=== PATIENT | male | born 1980 | race Caucasian/White ===

== ENCOUNTER 2017-12-28 21:55 | Inpatient (IN) ==
[2017-12-28] MEDS ORDERED: Diphtheria/Tetanus/Pertussis Vaccine Inj 0.5 ML Syringe IM ONE (21:59)
[2017-12-28] MEDS ORDERED: fentaNYL Citrate Inj 100 MCG/2 ML Ampul ONE ×2 (22:07→22:52)
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
[2017-12-28 22:24] LABS: Baso # (Auto) 0.1 th/mm3 (0.0-0.2); Baso % (Auto) 0.4 % (0.0-2.0); Eos # (Auto) 0.3 th/mm3 (0.0-0.4); Eos % (Auto) 1.3 % (0.0-4.0); Hematocrit 50.5 % (39.0-51.0); Hemoglobin 16.8 gm/dL (13.0-17.0); Lymph # (Auto) 2.8 th/mm3 (1.0-4.8); Lymph % (Auto) 14.4 % (9.0-44.0); Mean Corpuscular HGB Conc 33.2 % (32.0-36.0); Mean Corpuscular Hemoglobin 30.7 pg (27.0-34.0); Mean Corpuscular Volume 92.5 fL (80.0-100.0); Mean Platelet Volume 8.7 fL (7.0-11.0); Mono % (Auto) 4.8 % (0.0-8.0); Neut # (Auto) 15.6 th/mm3 (1.8-7.7); Neut % (Auto) 79.1 % (16.0-70.0); Platelet Count 276 th/mm3 (150-450); Red Blood Count 5.46 mil/mm3 (4.50-5.90); Red Cell Distribution Width 13.3 % (11.6-17.2); White Blood Count 19.8 th/mm3 (4.0-11.0)
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
[2017-12-28] MEDS ORDERED: Labetalol HCl Inj 100 MG/20 ML Vial ONE (22:34)
[2017-12-28 22:36] LABS: Activated Partial Thrombo Time 23.6 sec (24.3-30.1); INR 1.2 Ratio; Prothrombin Time 11.8 sec (9.8-11.6)
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
[2017-12-28 22:42] LABS: Anion Gap 5 meq/L (5-15); Blood Urea Nitrogen 15 mg/dL (7-18); Carbon Dioxide 30.3 meq/L (21.0-32.0); Chloride 105 meq/L (98-107); Glomerular Filtration Rate 44 mL/min (>89); Glucose,Random 110 mg/dL (74-106); Sodium 140 meq/L (136-145)
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
[2017-12-28 22:51] LABS: Potassium 5.5 meq/L (3.5-5.1)
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
[2017-12-28] MEDS ORDERED: Succinylcholine Inj 200 MG/10 ML Vial ONE ×3 (23:04→23:52)
[2017-12-28] MEDS ORDERED: Etomidate Inj 20 MG/10 ML Ampul IV.PUSH ONE (23:04)
[2017-12-28] MEDS ORDERED: ceFAZolin 2 GM Premix Inj 2 GM/50 ML PIGGYBACK IV.SIG ONE (23:53)
[2017-12-29] MEDS ORDERED: Succinylcholine Inj 200 MG/10 ML Vial ONE (00:31)
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
--- NOTE | 2017-12-29 01:26 | P.RAD ---
Post Procedure Progress Note - Procedure Information Procedure Date: 12/29/17 Supervising Radiologist: Max Davies MD Assisting Physician: Noman Joseph Estimated blood loss (mL): 10 Anesthesia: General - Plan of Activity Patient to Unit: Critical Care Patient Condition: Fair See PACS Report for procedural detail/treatment.
[2017-12-29] MEDS ORDERED: Naloxone Inj 0.4 MG/ML Vial IV.PUSH PRN (02:08)
[2017-12-29] MEDS ORDERED: Bisacodyl 10 MG Supp RECTAL PRN (02:08)
[2017-12-29] MEDS ORDERED: Post-op Orders (for Pharmacy) OTHER ONE (02:08)
[2017-12-29] MEDS ORDERED: Propofol 1000 mg/100 ml Inj 1,000 MG/100 ML BOTTLE IV.CONT PRN ×2 (02:10→02:30)
[2017-12-29] MEDS ORDERED: fentaNYL 10 mcg/mL Premix Drip 2,500 MCG/250 ML BAG IV.SIG PRN (02:11)
[2017-12-29] MEDS: Sod Chloride 0.9% Inj 1,000 ML IV.CONT SCH ×2 (02:15→14:00)
[2017-12-29 02:28] LABS: ABG Base Excess 2.2 mmol/L (-2-2); ABG PCO2 39 mmHg (38-42); ABG PO2 76 mmHg (61-120)
[2017-12-29] MEDS: fentaNYL 10 mcg/mL Premix Drip 2,500 MCG/250 ML BAG IV.SIG PRN ×2 (02:40→16:41)
[2017-12-29 03:45] LABS: Amphetamine Screen,Urine Neg (Neg); Barbiturate Screen,Urine Neg (Neg); Cannabinoid Screen,Urine Neg (Neg); Cocaine Screen,Urine Neg (Neg); Opiate Screen,Urine Neg (Neg)
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
[2017-12-29] MEDS: Propofol 1000 mg/100 ml Inj 1,000 MG/100 ML BOTTLE ONE ×2 (04:00→09:59)
[2017-12-29] MEDS: Propofol 1000 mg/100 ml Inj 1,000 MG/100 ML BOTTLE IV.CONT PRN ×3 (04:00→10:19)
[2017-12-29] MEDS: Metoprolol Inj 5 MG/5 ML Vial IV.PUSH SCH ×2 (04:52→09:59)
[2017-12-29] MEDS: ceFAZolin Inj 1,000 MG in Sodium Chlor 0.9% Inj 100 ML IV.SIG SCH ×2 (05:44→10:18)
[2017-12-29 08:55] LABS: Hematocrit 36.6 % (39.0-51.0); Hemoglobin 12.4 gm/dL (13.0-17.0); Lymph # (Auto) 0.5 th/mm3 (1.0-4.8); Lymph % (Auto) 3.7 % (9.0-44.0); Mean Corpuscular HGB Conc 33.9 % (32.0-36.0); Mean Corpuscular Hemoglobin 31.3 pg (27.0-34.0); Mean Corpuscular Volume 92.3 fL (80.0-100.0); Mean Platelet Volume 7.8 fL (7.0-11.0); Mono # (Auto) 1.1 th/mm3 (0.0-0.9); Mono % (Auto) 7.5 % (0.0-8.0); Neut # (Auto) 12.5 th/mm3 (1.8-7.7); Neut % (Auto) 88.8 % (16.0-70.0); Platelet Count 150 th/mm3 (150-450); Red Blood Count 3.97 mil/mm3 (4.50-5.90); Red Cell Distribution Width 12.9 % (11.6-17.2); White Blood Count 14.1 th/mm3 (4.0-11.0)
[2017-12-29 09:16] LABS: Alanine Aminotransferase 225 U/L (12-78); Anion Gap 9 meq/L (5-15); Aspartate Aminotransferase 237 U/L (15-37); Blood Urea Nitrogen 15 mg/dL (7-18); Calcium 8.3 mg/dL (8.5-10.1); Carbon Dioxide 24.7 meq/L (21.0-32.0); Chloride 109 meq/L (98-107); Glomerular Filtration Rate 56 mL/min (>89); Glucose,Random 127 mg/dL (74-106); Potassium 3.8 meq/L (3.5-5.1); Sodium 143 meq/L (136-145)
[2017-12-29 09:23] LABS: Alkaline Phosphatase 39 U/L (45-117); Total Protein 5.9 g/dL (6.4-8.2)
[2017-12-29] MEDS ORDERED: Sod Chloride 0.9% Inj 1,000 ML IV.SIG ONE ×2 (10:00→14:52)
[2017-12-29] MEDS ORDERED: Albumin Human 5% Inj 500 ML IV.SIG ONE (10:00)
[2017-12-29] MEDS: Famotidine PF Inj 20 MG/2 ML Vial IV.PUSH SCH (10:16)
[2017-12-29] MEDS: Senna/Docusate Sodium 8.6/50 MG Tablet PO SCH (10:16)
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
[2017-12-29] MEDS ORDERED: Phenylephrine/NS 1000 MCG/10ML Syringe IV.PUSH ONE ×2 (12:00→14:52)
[2017-12-29] MEDS ORDERED: Metoprolol Inj 5 MG/5 ML Vial IV.PUSH ONE (12:00)
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
[2017-12-29] MEDS ORDERED: Lidocaine 1% Inj 50 ML Vial ONE (12:39)
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
[2017-12-29] MEDS ORDERED: Piperacil/Tazo 4.5 GM Premix 4.5 GM/100 ML BAG IV.SIG ONE (13:45)
[2017-12-29] MEDS: Oral Hygiene Kit OROPHARYNG SCH ×2 (14:00→17:48)
[2017-12-29 14:07] LABS: ABG PCO2 42 mmHg (38-42); ABG PO2 147 mmHG (61-120)
[2017-12-29 14:14] LABS: Hematocrit 27.4 % (39.0-51.0); Hemoglobin 9.6 gm/dL (13.0-17.0); Mean Corpuscular HGB Conc 35.1 % (32.0-36.0); Mean Corpuscular Hemoglobin 31.9 pg (27.0-34.0); Mean Corpuscular Volume 90.8 fL (80.0-100.0); Mean Platelet Volume 7.8 fL (7.0-11.0); Platelet Count 118 th/mm3 (150-450); Red Blood Count 3.02 mil/mm3 (4.50-5.90); Red Cell Distribution Width 13.3 % (11.6-17.2); White Blood Count 13.1 th/mm3 (4.0-11.0)
[2017-12-29 14:26] LABS: Activated Partial Thrombo Time 35.7 sec (24.3-30.1); INR 1.3 Ratio; Prothrombin Time 13.4 sec (9.8-11.6)
[2017-12-29 14:37] LABS: Calcium 7.4 mg/dL (8.5-10.1); Carbon Dioxide 25.4 meq/L (21.0-32.0)
[2017-12-29 14:53] LABS: Total Protein 5.1 g/dL (6.4-8.2)
[2017-12-29 15:20] LABS: Potassium 3.8 meq/L (3.5-5.1)
[2017-12-29] MEDS ORDERED: Potassium Chlor 20 mEq Premix 20 MEQ/100 ML PIGGYBACK IV.SIG PRN ×2 (15:29)
[2017-12-29] MEDS ORDERED: Magnesium Oxide 400 MG Tablet PO PRN (15:29)
[2017-12-29] MEDS ORDERED: Potassium Phosphate 500 MG Soluble Tablet PO PRN ×2 (15:29)
[2017-12-29] MEDS ORDERED: Sodium Phosphate Inj 30 MMOL in Sodium Chlor 0.9% Inj 250 ML IV.SIG PRN (15:29)
[2017-12-29] MEDS ORDERED: Magnesium Sulfate Inj 2 GM in Sodium Chlor 0.9% Inj 96 ML IV.SIG PRN (15:29)
[2017-12-29] MEDS ORDERED: Potassium Phosphate Inj 30 MMOL in Sodium Chlor 0.9% Inj 250 ML IV.SIG PRN (15:29)
[2017-12-29] MEDS ORDERED: Magnesium Sulfate Inj 4 GM in Sodium Chlor 0.9% Inj 92 ML IV.SIG PRN (15:29)
[2017-12-29] MEDS ORDERED: Potassium Chlor 40 mEq Premix 40 MEQ/100 ML PIGGYBACK IV.SIG PRN ×2 (15:29)
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
[2017-12-29] MEDS: Midazolam 50 MG/50 ML Inj 50 MG/50 ML BAG IV.CONT PRN (16:43)
[2017-12-29] MEDS ORDERED: Protamine Sulfate Inj 50 MG/5 ML Vial ONE ×2 (17:34→22:21)
[2017-12-29] MEDS ORDERED: Heparin 10,000 UNITS/10 ML Vial (for IV use) ONE ×2 (17:34→22:21)
--- NOTE | 2017-12-29 17:47 | XR ---
EXAM DATE: 12/29/2017 5:42 PM EDT AGE/SEX: 37 years / Male INDICATIONS: Post reduction external fixation left foot CLINICAL DATA: This is the patient's subsequent encounter. Patient reports that signs and symptoms h ave been present for 2 days and indicates a pain score of Nonresponsive. MEDICAL/SURGICAL HISTORY: Non-responsive. Non-responsive. COMPARISON: No prior exams available for comparison. FINDINGS: 7 intraoperative digital spot images of the foot. Multiple internal fixation wires and external fixat or pins are in place. CONCLUSION: Intraoperative digital spot images showing internal fixation wires and external fixator pins in place . Electronically signed by: Roel Reina MD 12/29/2017 5:45 PM EDT
[2017-12-29 17:52] LABS: ABG Base Excess -1.4 mmol/L (-2-2); ABG PCO2 37 mmHg (38-42); ABG PO2 137 mmHG (61-120)
--- NOTE | 2017-12-29 17:54 | P.BOP ---
- Preoperative Diagnosis (1) Displaced fracture of navicular [scaphoid] of left foot, subsequent encounter for fracture with delayed healing (2) Displaced fracture of cuboid of left foot (3) Displaced fracture of left talus (4) Fracture of intermediate cuneiform of left foot (5) Fracture of medial cuneiform of left foot (6) Fracture of lateral cuneiform of left foot - Postoperative Diagnosis (1) Displaced fracture of cuboid of left foot (2) Displaced fracture of left talus (3) Displaced fracture of navicular [scaphoid] of left foot, subsequent encounter for fracture with delayed healing (4) Fracture of intermediate cuneiform of left foot (5) Fracture of lateral cuneiform of left foot (6) Fracture of medial cuneiform of left foot Date of procedure: 12/29/17 Procedure: Open reduction internal fixation, talus, cuboid, navicular, intermediate, lateral, middle cuneiform with application of external fixator uniplane type Anesthesia: GETA Surgeon: Otf Arnold DPM Estimated blood loss (mL): 20 (ml) Tourniquet time (min): 86 (250mmhg left) Pathology: none sent Condition: stable Disposition: ICU (Case was performed in conjunction with abdominal surgery and right lower extremity vascular surgery with Dr. Armstrong)
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
--- NOTE | 2017-12-29 19:48 | MP ---
cc: Noman Joseph MD DATE OF OPERATION: 12/29/2017 PREOPERATIVE DIAGNOSIS: Traumatic hemopneumothorax, left. POSTOPERATIVE DIAGNOSIS: Traumatic hemopneumothorax, left. PROCEDURE: Left chest tube placement. SURGEON: Noman Joseph MD ANESTHESIA: General. ESTIMATED BLOOD LOSS: Minimal. DESCRIPTION OF PROCEDURE: The patient was prepped and draped in the usual fashion. The area was infiltrated with 1% Xylocaine. The patient was already sedated and on the ventilator. Incision was made in the fifth intercostal space mid axillary line, deepened down with a hemostat to the level of the 5th rib, and over the 6th rib, the hemostat was inserted in the chest. A 28 Hungarian chest tube was placed. About 300 mL of old blood was obtained. The tube was sutured in place with 0 silk and connected to a Pleur-Evac. The patient tolerated the procedure well. MD SERGEY Gomes/kermit , 04:23 PM , 04:27 PM
[2017-12-29] MEDS ORDERED: fentaNYL Citrate Inj 100 MCG/2 ML Ampul ONE (20:06)
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
--- NOTE | 2017-12-29 21:16 | XR ---
EXAM DATE: 12/29/2017 9:10 PM EDT AGE/SEX: 37 years / Male INDICATIONS: Evaluate all support lines and tubes post surgery. CLINICAL DATA: This is the patient's subsequent encounter. Patient reports that signs and symptoms h ave been present for 2 days and indicates a pain score of Nonresponsive. MEDICAL/SURGICAL HISTORY: Non-responsive. . Aortic stent. COMPARISON: [facility] – [place], CHEST 1V SINGLE AP, 12/29/2017. . FINDINGS: Single AP view of the chest. Thoracic aortic stent is now seen. Endotracheal tube remains in place. N asogastric tube is now in place with the tip in the distal stomach. Right subclavian central venous c atheter is in place with the tip in the distal SVC region. Left-sided chest tube is seen with subcuta neous emphysema on the left. No evidence of pneumothorax. No evidence of pleural effusion. Lungs are grossly clear. CONCLUSION: 1. Thoracic aortic stent now seen. 2. Multiple new lines and tubes. 3. Subcutaneous emphysema on the left. No evidence of pneumothorax. Electronically signed by: Roel Reina MD 12/29/2017 9:14 PM EDT
[2017-12-29] MEDS: Piperacil/Tazo 3.375 GM Premix 50 ML IV.SIG SCH (22:31)
[2017-12-29] MEDS ORDERED: Heparin - SQ 10,000 UNITS/ML Vial ONE (22:33)
[2017-12-29 23:17] LABS: ABG Base Excess 1.4 mmol/L (-2-2); ABG PCO2 44 mmHg (38-42); ABG PO2 100 mmHG (61-120)
[2017-12-30 00:53] LABS: ABG Base Excess 1.7 mmol/L (-2-2); ABG PCO2 35 mmHg (38-42); ABG PO2 117 mmHg (61-120)
[2017-12-30] MEDS: Famotidine PF Inj 20 MG/2 ML Vial IV.PUSH SCH ×3 (01:19→20:35)
[2017-12-30] MEDS: Senna/Docusate Sodium 8.6/50 MG Tablet PO SCH ×3 (01:19→20:35)
[2017-12-30] MEDS: Piperacil/Tazo 3.375 GM Premix 50 ML IV.SIG SCH ×3 (01:19→16:31)
[2017-12-30] MEDS: ceFAZolin Inj 1,000 MG in Sodium Chlor 0.9% Inj 100 ML IV.SIG SCH (01:19)
[2017-12-30] MEDS: Oral Hygiene Kit OROPHARYNG SCH ×4 (01:20→16:31)
[2017-12-30] MEDS: Chlorhexidine 0.12% Oral Kit 15 ML UDC OROPHARYNG SCH ×3 (01:20→20:58)
[2017-12-30 01:35] LABS: Hematocrit 29.9 % (39.0-51.0); Hemoglobin 10.4 gm/dL (13.0-17.0); Mean Corpuscular HGB Conc 34.8 % (32.0-36.0); Mean Corpuscular Volume 89.2 fL (80.0-100.0); Mean Platelet Volume 8.1 fL (7.0-11.0); Platelet Count 104 th/mm3 (150-450); Red Blood Count 3.35 mil/mm3 (4.50-5.90); Red Cell Distribution Width 13.4 % (11.6-17.2); White Blood Count 13.3 th/mm3 (4.0-11.0)
[2017-12-30] MEDS: Heparin Drip 25,000 UNIT/250 ML BAG IV.CONT PRN (01:36)
[2017-12-30] MEDS: fentaNYL 10 mcg/mL Premix Drip 2,500 MCG/250 ML BAG IV.SIG PRN ×2 (01:45→18:30)
[2017-12-30] MEDS: Midazolam 50 MG/50 ML Inj 50 MG/50 ML BAG IV.CONT PRN ×3 (01:46→20:36)
[2017-12-30] MEDS: Sod Chloride 0.9% Inj 1,000 ML IV.CONT SCH ×3 (01:47→18:30)
[2017-12-30 02:03] LABS: Calcium 6.9 mg/dL (8.5-10.1); Carbon Dioxide 27.4 meq/L (21.0-32.0); Potassium 3.8 meq/L (3.5-5.1)
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
[2017-12-30 02:33] LABS: Total Protein 4.3 g/dL (6.4-8.2)
[2017-12-30] MEDS: Metoprolol Inj 5 MG/5 ML Vial IV.PUSH SCH ×4 (04:31→20:58)
[2017-12-30 05:27] LABS: Baso % (Auto) 0.3 % (0.0-2.0); Eos % (Auto) 0.4 % (0.0-4.0); Hematocrit 31.1 % (39.0-51.0); Hemoglobin 10.8 gm/dL (13.0-17.0); Lymph # (Auto) 1.5 th/mm3 (1.0-4.8); Lymph % (Auto) 10.9 % (9.0-44.0); Mean Corpuscular HGB Conc 34.9 % (32.0-36.0); Mean Corpuscular Hemoglobin 31.1 pg (27.0-34.0); Mean Corpuscular Volume 89.2 fL (80.0-100.0); Mono # (Auto) 1.1 th/mm3 (0.0-0.9); Mono % (Auto) 7.8 % (0.0-8.0); Neut % (Auto) 80.6 % (16.0-70.0); Platelet Count 112 th/mm3 (150-450); Red Blood Count 3.48 mil/mm3 (4.50-5.90); Red Cell Distribution Width 13.4 % (11.6-17.2); White Blood Count 13.7 th/mm3 (4.0-11.0)
[2017-12-30 05:32] LABS: INR 1.3 Ratio; Prothrombin Time 12.7 sec (9.8-11.6)
[2017-12-30 05:41] LABS: ABG Base Excess 1.5 mmol/L (-2-2); ABG PCO2 32 mmHg (38-42); ABG PO2 149 mmHg (61-120)
[2017-12-30 05:50] LABS: Albumin 2.6 g/dL (3.4-5.0); Calcium 7.1 mg/dL (8.5-10.1); Carbon Dioxide 26.4 meq/L (21.0-32.0); Potassium 3.6 meq/L (3.5-5.1); Total Protein 4.7 g/dL (6.4-8.2)
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
[2017-12-30] MEDS ORDERED: Albumin Human 5% Inj 500 ML IV.SIG ONE (16:00)
--- NOTE | 2017-12-30 20:03 | P.PNPOD ---
Subjective Interval history: Pt is s/p left foot ex fix application by on 12/29/17 for dislocated mid foot and rearfoot fractures. He is currently intubated. Physical Exam Vital signs: Vital Signs 12/29/17 20:30 12/29/17 20:44 12/29/17 21:15 Temperature 99.7 F H Pulse Rate 94 H Respiratory Rate 14 16 Blood Pressure 140/54 L Pulse Oximetry 100 100 100 12/30/17 00:55 12/30/17 01:00 12/30/17 02:06 Temperature 98.7 F Pulse Rate 92 H 88 Respiratory Rate 14 14 Blood Pressure 156/60 H 156/59 H Pulse Oximetry 100 100 12/30/17 03:38 12/30/17 04:00 12/30/17 08:00 Temperature 100.4 F H 101.4 F H Pulse Rate 112 H 106 H Respiratory Rate 14 14 14 Blood Pressure 122/44 L 136/50 L Pulse Oximetry 100 100 100 12/30/17 08:51 12/30/17 10:00 12/30/17 12:00 Temperature 99.8 F H Pulse Rate 107 H 106 H Respiratory Rate 19 12 Blood Pressure 116/46 L Pulse Oximetry 100 100 12/30/17 12:23 12/30/17 13:30 12/30/17 14:00 Temperature Pulse Rate 122 H Respiratory Rate 12 Blood Pressure Pulse Oximetry 100 100 12/30/17 15:18 12/30/17 16:00 12/30/17 18:00 Temperature 100.1 F H Pulse Rate 101 H 109 H Respiratory Rate 12 12 Blood Pressure 110/46 L Pulse Oximetry 100 100 Intake & Output 12/30/17 12/30/17 12/31/17 06:59 18:59 06:59 Intake Total 4960 / 4960 2850 / 2850 Output Total 4073 / 4073 820 / 820 Balance 887 / 887 2029 / 2030 Weight 90.5 kg Intake: IV 1400 / 1400 2850 / 2850 Versed Inj 50 mg In 50 ml @ 2 100 / 100 MG/HR 2 mls/hr IV.CONT TITRATE PRN Rx#:[id number] NS Inj 1,000 ML @ 100 mls/hr IV 1000 / 1000 1999 / 1999 .CONT .Q10H [facility] Rx#:[id number] Alburx 5% Inj 500 ML @ 250 mls/ 500 / 500 hr IV.SIG ONCE ONE Rx#:[id number] Zosyn 3.375 GM Premix 50 ML @ 50 / 50 100 / 100 100 mls/hr IV.SIG Q8H [facility] Rx#: [id number] fentaNYL 10 mcg/mL Premix Drip 250 / 250 250 / 250 2,500 mcg In 250 ml @ 50 MCG/HR 5 mls/hr IV.SIG TITRATE PRN Rx #:[id number] Tube Irrigant 60 / 60 Anesthesia Amount 3500 / 3500 Output: Estimated Blood Loss 850 / 850 Urine Amount (Catheter) 2675 / 2675 500 / 500 Indwelling Urethral Catheter 2675 / 2675 500 / 500 Gastric Drainage 100 / 100 Orogastric Tube 100 / 100 Wound Drainage 310 / 310 140 / 140 # 1 Abdomen CAR[place]INA Drain 310 / 310 140 / 140 Chest Tube Drainage 238 / 238 80 / 80 Left Mid-Axillary Chest 238 / 238 80 / 80 Other: # Bowel Movements 0 Narrative: Bandages are intact with mild sanginous strikethrough. Calf is supple and not swollen. Forefoot is warm and feel perfused. Medications and Allergies Active Medications: Active Medications Acetaminophen (Tylenol Liq) 650 mg PO Q6H PRN PRN Reason: temp > 100.5 Al Hydroxide/Mg Hydroxide (Milk Of Magnesia Liq) 30 ml PO Q12H PRN PRN Reason: Mild Constipation Albuterol (Duoneb Neb (Prn)) 1 ampul NEB Q2HR NEB PRN PRN Reason: SHORTNESS OF BREATH/WHEEZING Bisacodyl (Dulcolax Supp) 10 mg RECTAL DAILY PRN PRN Reason: SEVERE CONSITIPATION Chlorhexidine Gluconate (Peridex 0.12% Oral Kit) 15 ml OROPHARYNG BID@0800, 1999 [facility] Last Admin: 12/30/17 08:02 Dose: 15 ml Famotidine (Pepcid Pf Inj) 20 mg IV.PUSH Q12HR [facility] Last Admin: 12/30/17 08:07 Dose: 20 mg Sodium Chloride (Ns Inj) 1,000 mls @ 100 mls/hr IV.CONT .Q10H [facility] Last Admin: 12/30/17 18:30 Dose: 100 mls/hr Fentanyl (Fentanyl 10 Mcg/Ml Premix Drip) 2,500 mcg in 250 mls @ 5 mls/hr IV.SIG TITRATE PRN; Protocol PRN Reason: Per Protocol Last Admin: 12/30/17 18:30 Dose: 125 mcg/hr, 12.5 mls/hr Midazolam HCl (Versed Inj) 50 mg in 50 mls @ 2 mls/hr IV.CONT TITRATE PRN; Protocol PRN Reason: Per Protocol Last Admin: 12/30/17 12:24 Dose: 5 mg/hr, 5 mls/hr Potassium Chloride (Kcl 20 Meq Premix Inj) 20 meq in 100 mls @ 50 mls/hr IV.SIG Q2H PRN PRN Reason: For Potassium 3.3 - 3.5 mEq/L Sodium Phosphate 30 mmol/ (Sodium Chloride) 260 mls @ 42 mls/hr IV.SIG UNSCH PRN PRN Reason: For Phosphorus < 2.5 mg/dL Magnesium Sulfate Inj 4 gm/ (Sodium Chloride) 100 mls @ 50 mls/hr IV.SIG UNSCH PRN PRN Reason: For Magnesium 0.9 - 1.1 mg/dL Magnesium Sulfate Inj 2 gm/ (Sodium Chloride) 100 mls @ 50 mls/hr IV.SIG UNSCH PRN PRN Reason: For Magnesium 1.2 - 1.6 mg/dL Potassium Chloride (Kcl 40 Meq Premix Inj) 40 meq in 100 mls @ 25 mls/hr IV.SIG Q2H PRN PRN Reason: For Potassium 2.8 - 3.2 mEq/L Potassium Chloride (Kcl 40 Meq Premix Inj) 40 meq in 100 mls @ 25 mls/hr IV.SIG UNSCH PRN PRN Reason: For Potassium 3.3 - 3.5 mEq/L Potassium Chloride (Kcl 20 Meq Premix Inj) 20 meq in 100 mls @ 50 mls/hr IV.SIG Q2H PRN PRN Reason: For Potassium 2.8 - 3.2 mEq/L Potassium Phosphate 30 mmol/ (Sodium Chloride) 260 mls @ 42 mls/hr IV.SIG UNSCH PRN PRN Reason: SEE LABEL COMMENTS Heparin Sodium/Dextrose (Heparin/D5w 25,000 U/250 Ml) 25,000 unit in 250 mls @ 10 mls/hr IV.CONT TITRATE PRN; Protocol PRN Reason: Per Protocol Last Titration: 12/30/17 06:59 Dose: 800 units/hr, 8 mls/hr Lactulose (Lactulose Liq) 30 ml PO DAILY PRN PRN Reason: SEVERE CONSITIPATION Magnesium Oxide (Mag-Ox) 800 mg PO UNSCH PRN PRN Reason: For Magnesium 1.2 - 1.6 mg/dL Metoprolol Tartrate (Lopressor Inj) 5 mg IV.PUSH Q6H [facility] Last Admin: 12/30/17 15:07 Dose: Not Given Naloxone HCl (Narcan Inj) 0.4 mg IV.PUSH UNSCH PRN PRN Reason: SEE LABEL COMMENTS Ondansetron HCl (Zofran Inj) 4 mg IV.PUSH Q6H PRN PRN Reason: NAUSEA OR VOMITING Potassium Bicarb/Potassium Chloride (K-Lyte Cl Eff) 50 meq PO UNSCH PRN PRN Reason: For Potassium 3.3 - 3.5 mEq/L Potassium Phosphate (K-Phos Original) 2,000 mg PO Q4H PRN PRN Reason: Phosphorus Less Than 2.5 mg/dL Potassium Phosphate (K-Phos Original) 2,000 mg PO UNSCH PRN PRN Reason: SEE LABEL COMMENTS Senna/Docusate Sodium (Ramona-Colace) 1 tab PO BID [facility] Last Admin: 12/30/17 08:08 Dose: Not Given Sennosides (Senokot) 17.2 mg PO Q12H PRN PRN Reason: Moderate Constipation Allergies Allergy/AdvReac Type Severity Reaction Status Date / Time No Known Allergies Allergy Unverified 12/29/17 04:41 Results - Labs CBC & Chem 7: 12/30/17 05:10 12/30/17 05:10 Laboratory Results - last 24 hr 12/29/17 12/29/17 12/30/17 12:46 22:59 00:42 WBC RBC Hgb Hct MCV MCH MCHC RDW Plt Count MPV Neut % (Auto) Lymph % (Auto) [place] % (Auto) Eos % (Auto) Baso % (Auto) Neut # (Auto) Lymph # (Auto) [place] # (Auto) Eos # (Auto) Baso # (Auto) WBC Differential Differential Comment PT INR APTT Puncture Site Drawn in or Art line Patient Temperature 98.6 98.6 O2 Saturation 95 96 ABG pH 7.39 7.47 H ABG pCO2 44 H 35 L ABG pO2 100 117 ABG HCO3 26 25 ABG O2 Content 13.6 14.0 ABG Base Excess 1.4 1.7 ABG Methemoglobin 1.5 1.3 Wilmer Test Drawn in or Hemoglobin 10.1 L 10.2 L Carboxyhemoglobin 1.4 1.7 O2 Delivery Device Drawn in or Vent Vent Setting Prvc/ac Inspired O2 50 50 Critical Value No No Sodium Potassium Chloride Carbon Dioxide Anion Gap BUN Creatinine Estimated GFR Random Glucose Calcium Prot Corrected Calcium Total Bilirubin AST ALT Alkaline Phosphatase Total Protein Albumin MTS Gel Crossmatch See Detail 12/30/17 12/30/17 12/30/17 00:50 00:50 05:10 WBC 13.3 H 13.7 H RBC 3.35 L 3.48 L Hgb 10.4 L 10.8 L Hct 29.9 L 31.1 L MCV 89.2 89.2 MCH 31.0 31.1 MCHC 34.8 34.9 RDW 13.4 13.4 Plt Count 104 L 112 L MPV 8.1 8.0 Neut % (Auto) 80.6 H Lymph % (Auto) 10.9 [place] % (Auto) 7.8 Eos % (Auto) 0.4 Baso % (Auto) 0.3 Neut # (Auto) 11.0 H Lymph # (Auto) 1.5 [place] # (Auto) 1.1 H Eos # (Auto) 0.0 Baso # (Auto) 0.0 WBC Differential . Differential Comment Auto diff final PT INR APTT Puncture Site Patient Temperature O2 Saturation ABG pH ABG pCO2 ABG pO2 ABG HCO3 ABG O2 Content ABG Base Excess ABG Methemoglobin Wilmer Test Hemoglobin Carboxyhemoglobin O2 Delivery Device Vent Setting Inspired O2 Critical Value Sodium 148 H Potassium 3.8 Chloride 113 H Carbon Dioxide 27.4 Anion Gap 8 BUN 13 Creatinine 0.96 Estimated GFR 88 L Random Glucose 121 H Calcium 6.9 L* Prot Corrected Calcium 8.4 L Total Bilirubin AST ALT Alkaline Phosphatase Total Protein 4.3 L D Albumin MTS Gel Crossmatch 12/30/17 12/30/17 12/30/17 05:10 05:10 05:10 WBC RBC Hgb Hct MCV MCH MCHC RDW Plt Count MPV Neut % (Auto) Lymph % (Auto) [place] % (Auto) Eos % (Auto) Baso % (Auto) Neut # (Auto) Lymph # (Auto) [place] # (Auto) Eos # (Auto) Baso # (Auto) WBC Differential Differential Comment PT 12.7 H INR 1.3 APTT 80.0 H D Puncture Site Patient Temperature O2 Saturation ABG pH ABG pCO2 ABG pO2 ABG HCO3 ABG O2 Content ABG Base Excess ABG Methemoglobin Wilmer Test Hemoglobin Carboxyhemoglobin O2 Delivery Device Vent Setting Inspired O2 Critical Value Sodium 146 H Potassium 3.6 Chloride 113 H Carbon Dioxide 26.4 Anion Gap 7 BUN 13 Creatinine 1.06 Estimated GFR 78 L Random Glucose 111 H Calcium 7.1 L* Prot Corrected Calcium 8.4 L Total Bilirubin 3.8 H AST 111 H ALT 113 H Alkaline Phosphatase 29 L Total Protein 4.7 L Albumin 2.6 L MTS Gel Crossmatch 12/30/17 12/30/17 05:31 13:15 WBC RBC Hgb Hct MCV MCH MCHC RDW Plt Count MPV Neut % (Auto) Lymph % (Auto) [place] % (Auto) Eos % (Auto) Baso % (Auto) Neut # (Auto) Lymph # (Auto) [place] # (Auto) Eos # (Auto) Baso # (Auto) WBC Differential Differential Comment PT INR APTT 55.1 H D Puncture Site Art line Patient Temperature 98.6 O2 Saturation 97 ABG pH 7.50 H ABG pCO2 32 L ABG pO2 149 H ABG HCO3 25 ABG O2 Content 14.8 ABG Base Excess 1.5 ABG Methemoglobin 1.2 Wilmer Test Hemoglobin 10.7 L Carboxyhemoglobin 1.3 O2 Delivery Device Vent Vent Setting Prvc/ac Inspired O2 50 Critical Value No Sodium Potassium Chloride Carbon Dioxide Anion Gap BUN Creatinine Estimated GFR Random Glucose Calcium Prot Corrected Calcium Total Bilirubin AST ALT Alkaline Phosphatase Total Protein Albumin MTS Gel Crossmatch - Imaging Impressions Aneurysm Repair 12/29/17 00:00 CONCLUSION: 1. Uncomplicated thoracic endograft placement for treatment of traumatic aortic injury. Lower Extremity Angiography 12/29/17 00:00 CONCLUSION: 1. Normal appearance of right iliac arteries, right common femoral artery and right femoral arteries. 2. Thrombus noted in the below knee right popliteal artery extending to the proximal tibial arteries. See above discussion. Chest X-Ray 12/29/17 20:45 CONCLUSION: 1. Thoracic aortic stent now seen. 2. Multiple new lines and tubes. 3. Subcutaneous emphysema on the left. No evidence of pneumothorax. Ankle CT 12/30/17 00:00 CONCLUSION: 1. Previous fracture dislocation of the talonavicular joint with comminution of both osseous structures. The dislocation has been reduced and secured with multiple osseous wires. 2. In addition, there is slightly comminuted fracture through the distal articulating surface of the calcaneus with the cuboid with comminuted fracture of the cuboid itself. These osseous structures are also secured with multiple osseous wires. 3. Fracture through the head of the fifth metatarsal. Chest X-Ray 12/30/17 08:15 CONCLUSION: 1. Stable tubes and lines, as above. 2. Stable left chest tube without significant pneumothorax. 3. Improved aeration in the right mid lung. 4. Persistent patchy airspace disease in the left lung consistent with contusions. Assessment and Plan - Assessment (1) Closed dislocation of foot Code(s): S93.306A - Unspecified dislocation of unspecified foot, initial encounter Status: Acute (2) Displaced fracture of navicular [scaphoid] of left foot, subsequent encounter for fracture with delayed healing Code(s): S92.252G - Displaced fracture of navicular [scaphoid] of left foot, subsequent encounter for fracture with delayed healing Status: Acute (3) Displaced fracture of cuboid of left foot Code(s): S92.212A - Displaced fracture of cuboid bone of left foot, initial encounter for closed fracture Status: Acute (4) Displaced fracture of left talus Code(s): S92.102A - Unspecified fracture of left talus, initial encounter for closed fracture Status: Acute - Plan -NWBing LLE -Elevation but no ice to LLE -Physician to change dressing in 1-2 days -Pt will likely require a removal of the ex fix and implantation of internal hardware in 2-3 weeks, will gauge over all health status to help determine timing
[2017-12-31] MEDS: Oral Hygiene Kit OROPHARYNG SCH ×5 (00:54→23:30)
[2017-12-31] MEDS: Metoprolol Inj 5 MG/5 ML Vial IV.PUSH SCH ×4 (02:07→20:04)
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
[2017-12-31 05:53] LABS: ABG Base Excess 0.2 mmol/L (-2-2); ABG PCO2 34 mmHg (38-42); ABG PO2 148 mmHg (61-120)
[2017-12-31] MEDS: Sod Chloride 0.9% Inj 1,000 ML IV.CONT SCH ×2 (05:56→18:30)
[2017-12-31] MEDS: Heparin Drip 25,000 UNIT/250 ML BAG IV.CONT PRN (06:03)
[2017-12-31] MEDS: Midazolam 50 MG/50 ML Inj 50 MG/50 ML BAG IV.CONT PRN (06:06)
[2017-12-31 06:12] LABS: Baso % (Auto) 0.3 % (0.0-2.0); Eos # (Auto) 0.3 th/mm3 (0.0-0.4); Eos % (Auto) 2.6 % (0.0-4.0); Hematocrit 22.3 % (39.0-51.0); Hemoglobin 7.8 gm/dL (13.0-17.0); Lymph # (Auto) 1.3 th/mm3 (1.0-4.8); Lymph % (Auto) 10.7 % (9.0-44.0); Mean Corpuscular HGB Conc 34.8 % (32.0-36.0); Mean Platelet Volume 8.6 fL (7.0-11.0); Mono # (Auto) 0.9 th/mm3 (0.0-0.9); Neut # (Auto) 9.7 th/mm3 (1.8-7.7); Neut % (Auto) 79.4 % (16.0-70.0); Platelet Count 97 th/mm3 (150-450); Red Cell Distribution Width 13.7 % (11.6-17.2); White Blood Count 12.3 th/mm3 (4.0-11.0)
[2017-12-31 07:34] LABS: Platelet Morphology Normal (Normal)
[2017-12-31] MEDS: Chlorhexidine 0.12% Oral Kit 15 ML UDC OROPHARYNG SCH ×2 (08:00→20:06)
[2017-12-31] MEDS: Senna/Docusate Sodium 8.6/50 MG Tablet PO SCH ×2 (08:57→20:04)
[2017-12-31] MEDS: Famotidine PF Inj 20 MG/2 ML Vial IV.PUSH SCH ×2 (08:57→20:05)
[2017-12-31] MEDS: fentaNYL 10 mcg/mL Premix Drip 2,500 MCG/250 ML BAG IV.SIG PRN (08:58)
[2017-12-31 09:39] LABS: Alanine Aminotransferase 67 U/L (12-78); Albumin 2.4 g/dL (3.4-5.0); Alkaline Phosphatase 32 U/L (45-117); Anion Gap 9 meq/L (5-15); Aspartate Aminotransferase 90 U/L (15-37); Blood Urea Nitrogen 9 mg/dL (7-18); Calcium 7.3 mg/dL (8.5-10.1); Carbon Dioxide 23.7 meq/L (21.0-32.0); Chloride 112 meq/L (98-107); Glomerular Filtration Rate Greater Than 89 mL/min (>89); Glucose,Random 91 mg/dL (74-106); Potassium 3.5 meq/L (3.5-5.1); Sodium 145 meq/L (136-145); Total Protein 4.9 g/dL (6.4-8.2)
[2017-12-31] MEDS ORDERED: Sodium Chlor 0.9% Inj 250 ML IV.SIG SCH (10:00)
[2017-12-31] MEDS: Potassium Chloride 25 MEQ Effervescent Tablet PO PRN (10:10)
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
[2017-12-31] MEDS ORDERED: fentaNYL Citrate Inj 100 MCG/2 ML Ampul IV.PUSH PRN (20:00)
[2017-12-31] MEDS ORDERED: Propofol Inj 500 MG/50 ML Vial IV.PUSH ONE (23:30)
[2018-01-01] MEDS: Midazolam 50 MG/50 ML Inj 50 MG/50 ML BAG IV.CONT PRN (01:17)
[2018-01-01] MEDS: Metoprolol Inj 5 MG/5 ML Vial IV.PUSH SCH ×4 (02:48→20:00)
[2018-01-01] MEDS: Oral Hygiene Kit OROPHARYNG SCH ×3 (03:59→17:06)
--- NOTE | 2018-01-01 05:12 | XR ---
EXAM DATE: 01/01/2018 4:13 AM EDT AGE/SEX: 37 years / Male INDICATIONS: Shortness of breath. CLINICAL DATA: This is the patient's subsequent encounter. Patient reports that signs and symptoms h ave been present for 4 - 6 days and indicates a pain score of Nonresponsive. MEDICAL/SURGICAL HISTORY: Non-responsive. Non-responsive. COMPARISON: [facility] – [place], CHEST 1V SINGLE AP, 12/31/2017. . FINDINGS: A single AP view of the chest demonstrates bilateral patchy opacities. Aortic stent graft. Endotrache al tube, nasogastric tube and right subclavian central line stable position. Left-sided chest tube wi thout pneumothorax. Subcutaneous emphysema laterally on the left. The cardiomediastinal contours are unremarkable. Osseous structures are intact. CONCLUSION: Bilateral patchy opacities. Electronically signed by: Ozzy Miller MD 01/01/2018 5:11 AM EDT
[2018-01-01 05:54] LABS: ABG Base Excess 2.2 mmol/L (-2-2); ABG PCO2 34 mmHg (38-42); ABG PO2 149 mmHg (61-120)
[2018-01-01 06:11] LABS: Baso # (Auto) 0.1 th/mm3 (0.0-0.2); Baso % (Auto) 0.5 % (0.0-2.0); Eos # (Auto) 0.3 th/mm3 (0.0-0.4); Eos % (Auto) 2.3 % (0.0-4.0); Hematocrit 24.3 % (39.0-51.0); Hemoglobin 8.6 gm/dL (13.0-17.0); Lymph # (Auto) 1.4 th/mm3 (1.0-4.8); Lymph % (Auto) 9.4 % (9.0-44.0); Mean Corpuscular HGB Conc 35.5 % (32.0-36.0); Mean Corpuscular Hemoglobin 31.5 pg (27.0-34.0); Mean Corpuscular Volume 88.6 fL (80.0-100.0); Mean Platelet Volume 8.4 fL (7.0-11.0); Mono # (Auto) 1.3 th/mm3 (0.0-0.9); Mono % (Auto) 8.9 % (0.0-8.0); Neut # (Auto) 11.5 th/mm3 (1.8-7.7); Neut % (Auto) 78.9 % (16.0-70.0); Platelet Count 113 th/mm3 (150-450); Red Blood Count 2.75 mil/mm3 (4.50-5.90); Red Cell Distribution Width 13.4 % (11.6-17.2); White Blood Count 14.6 th/mm3 (4.0-11.0)
[2018-01-01 06:40] LABS: Albumin 2.3 g/dL (3.4-5.0); Anion Gap 7 meq/L (5-15); Aspartate Aminotransferase 101 U/L (15-37); Blood Urea Nitrogen 10 mg/dL (7-18); Calcium 7.7 mg/dL (8.5-10.1); Chloride 109 meq/L (98-107); Glomerular Filtration Rate Greater Than 89 mL/min (>89); Glucose,Random 94 mg/dL (74-106); Potassium 3.4 meq/L (3.5-5.1); Sodium 142 meq/L (136-145)
[2018-01-01 06:44] LABS: Alanine Aminotransferase 60 U/L (12-78); Alkaline Phosphatase 46 U/L (45-117); Total Protein 5.4 g/dL (6.4-8.2)
[2018-01-01] MEDS: Potassium Chloride 25 MEQ Effervescent Tablet PO PRN (06:49)
[2018-01-01] MEDS: Famotidine PF Inj 20 MG/2 ML Vial IV.PUSH SCH ×2 (09:02→20:00)
[2018-01-01] MEDS: Chlorhexidine 0.12% Oral Kit 15 ML UDC OROPHARYNG SCH ×2 (09:03→20:00)
[2018-01-01] MEDS: Senna/Docusate Sodium 8.6/50 MG Tablet PO SCH ×2 (09:03→20:00)
[2018-01-01] MEDS: Sod Chloride 0.9% Inj 1,000 ML IV.CONT SCH (09:34)
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
[2018-01-01] MEDS: Heparin Drip 25,000 UNIT/250 ML BAG IV.CONT PRN (16:59)
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
[2018-01-02] MEDS: Oral Hygiene Kit OROPHARYNG SCH ×4 (00:32→17:03)
[2018-01-02] MEDS: Metoprolol Inj 5 MG/5 ML Vial IV.PUSH SCH ×4 (01:51→21:39)
--- NOTE | 2018-01-02 05:15 | XR ---
EXAM DATE: 01/02/2018 4:08 AM EDT AGE/SEX: 37 years / Male INDICATIONS: Shortness of breath CLINICAL DATA: This is the patient's subsequent encounter. Patient reports that signs and symptoms h ave been present for 4 - 6 days and indicates a pain score of Nonresponsive. MEDICAL/SURGICAL HISTORY: Non-responsive. Non-responsive. COMPARISON: [facility] – [place], CHEST 1V SINGLE AP, 01/01/2018. . FINDINGS: The ET tube, NG tube, left chest tube, and right internal jugular central line are all well placed. T here is an aortic stent graft in place. There is increased density seen at the left midlung adjacent chest tube. There is some minimal increased density at the bases. A pneumothorax is not seen. There i s mild increased density at the periphery of the left chest likely related to a mild amount of left p leural fluid. Fluker are seen over the upper abdomen. Bilateral rib fractures are again seen. CONCLUSION: Consolidation or atelectasis seen adjacent to the left chest tube. A pneumothorax is not seen. Minimal bibasilar areas of consolidation or atelectasis. Electronically signed by: Tyson Rodriguez MD 01/02/2018 5:14 AM EDT
[2018-01-02 06:04] LABS: ABG PCO2 41 mmHg (38-42); ABG PO2 87 mmHg (61-120)
[2018-01-02 06:12] LABS: Baso % (Auto) 0.3 % (0.0-2.0); Eos # (Auto) 0.3 th/mm3 (0.0-0.4); Eos % (Auto) 1.8 % (0.0-4.0); Hematocrit 25.9 % (39.0-51.0); Hemoglobin 9.3 gm/dL (13.0-17.0); Lymph # (Auto) 1.1 th/mm3 (1.0-4.8); Lymph % (Auto) 8.2 % (9.0-44.0); Mean Corpuscular Hemoglobin 32.1 pg (27.0-34.0); Mean Platelet Volume 7.9 fL (7.0-11.0); Mono # (Auto) 1.5 th/mm3 (0.0-0.9); Mono % (Auto) 10.5 % (0.0-8.0); Neut % (Auto) 79.2 % (16.0-70.0); Platelet Count 161 th/mm3 (150-450); Red Blood Count 2.91 mil/mm3 (4.50-5.90); Red Cell Distribution Width 13.2 % (11.6-17.2); White Blood Count 13.9 th/mm3 (4.0-11.0)
[2018-01-02 06:39] LABS: Albumin 2.4 g/dL (3.4-5.0); Anion Gap 9 meq/L (5-15); Aspartate Aminotransferase 81 U/L (15-37); Blood Urea Nitrogen 12 mg/dL (7-18); Calcium 8.2 mg/dL (8.5-10.1); Carbon Dioxide 25.6 meq/L (21.0-32.0); Chloride 105 meq/L (98-107); Glomerular Filtration Rate Greater Than 89 mL/min (>89); Glucose,Random 94 mg/dL (74-106); Potassium 3.8 meq/L (3.5-5.1); Sodium 140 meq/L (136-145)
[2018-01-02 06:40] LABS: Alanine Aminotransferase 58 U/L (12-78)
[2018-01-02 06:42] LABS: Alkaline Phosphatase 51 U/L (45-117); Total Protein 5.9 g/dL (6.4-8.2)
[2018-01-02] MEDS: Sod Chloride 0.9% Inj 1,000 ML IV.CONT SCH (07:06)
[2018-01-02 08:13] LABS: Eosinophils 3 % (0-4); Lymphocytes 10 % (9-44); Metamyelocytes 1 % (0-1); Monocytes 4 % (0-8); Platelet Estimate Normal (Normal); Platelet Morphology Normal (Normal); Promyelocyte 2 % (0-0)
[2018-01-02] MEDS: Famotidine PF Inj 20 MG/2 ML Vial IV.PUSH SCH ×2 (08:37→21:39)
[2018-01-02] MEDS: Chlorhexidine 0.12% Oral Kit 15 ML UDC OROPHARYNG SCH ×2 (08:38→21:40)
[2018-01-02] MEDS: Senna/Docusate Sodium 8.6/50 MG Tablet PO SCH ×2 (08:38→21:40)
[2018-01-02] MEDS: Enoxaparin Inj 30 MG/0.3 ML Syringe SQ SCH ×2 (10:49→21:39)
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
[2018-01-03] MEDS: Oral Hygiene Kit OROPHARYNG SCH ×2 (02:07→05:12)
[2018-01-03] MEDS: Metoprolol Inj 5 MG/5 ML Vial IV.PUSH SCH ×2 (02:12→08:28)
[2018-01-03] MEDS: Morphine Inj 4 MG/ML Vial IV.PUSH PRN ×4 (04:01→16:45)
--- NOTE | 2018-01-03 08:24 | XR ---
EXAM DATE: 01/03/2018 8:06 AM EDT AGE/SEX: 37 years / Male INDICATIONS: Shortness of breath, f/u on pneumothorax. CLINICAL DATA: This is the patient's subsequent encounter. Patient reports that signs and symptoms h ave been present for 4 - 6 days and indicates a pain score of 2/10. MEDICAL/SURGICAL HISTORY: None. . Cardiac stent. COMPARISON: [facility], CHEST 1V SINGLE AP, 01/02/2018. . FINDINGS: Right subclavian central line is stable in position. Thoracic aortic endograft is noted in the distal arch and proximal descending region. Left thoracostomy tube is stable and satisfactory position. The re is increasing hazy parenchymal opacity diffusely present on the right and involving the left lung base. Visualized cardiac contours are grossly stable. CONCLUSION: Worsening aeration Electronically signed by: Tyson Underwood MD 01/03/2018 8:23 AM EDT
[2018-01-03] MEDS: Enoxaparin Inj 30 MG/0.3 ML Syringe SQ SCH ×2 (08:27→21:03)
[2018-01-03] MEDS: Chlorhexidine 0.12% Oral Kit 15 ML UDC OROPHARYNG SCH (08:28)
[2018-01-03] MEDS: Senna/Docusate Sodium 8.6/50 MG Tablet PO SCH ×2 (08:28→21:03)
[2018-01-03] MEDS: Famotidine PF Inj 20 MG/2 ML Vial IV.PUSH SCH (08:28)
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
[2018-01-03] MEDS ORDERED: Sucralfate 1 GM Tablet PO PRN (19:48)
[2018-01-03] MEDS: Metoprolol Tartrate 25 MG Tablet PO SCH (21:03)
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
[2018-01-04 07:25] LABS: Baso # (Auto) 0.1 th/mm3 (0.0-0.2); Baso % (Auto) 0.4 % (0.0-2.0); Eos # (Auto) 0.2 th/mm3 (0.0-0.4); Eos % (Auto) 0.7 % (0.0-4.0); Hematocrit 32.7 % (39.0-51.0); Hemoglobin 11.2 gm/dL (13.0-17.0); Lymph # (Auto) 1.5 th/mm3 (1.0-4.8); Lymph % (Auto) 6.7 % (9.0-44.0); Mean Corpuscular HGB Conc 34.3 % (32.0-36.0); Mean Corpuscular Hemoglobin 31.2 pg (27.0-34.0); Mean Corpuscular Volume 91.2 fL (80.0-100.0); Mean Platelet Volume 7.6 fL (7.0-11.0); Mono # (Auto) 2.2 th/mm3 (0.0-0.9); Neut # (Auto) 18.5 th/mm3 (1.8-7.7); Neut % (Auto) 82.2 % (16.0-70.0); Platelet Count 372 th/mm3 (150-450); Red Blood Count 3.58 mil/mm3 (4.50-5.90); Red Cell Distribution Width 13.3 % (11.6-17.2); White Blood Count 22.4 th/mm3 (4.0-11.0)
[2018-01-04] MEDS: Methocarbamol 500 MG Tablet PO SCH ×3 (07:30→21:55)
[2018-01-04 07:50] LABS: Anion Gap 10 meq/L (5-15); Blood Urea Nitrogen 20 mg/dL (7-18); Calcium 8.4 mg/dL (8.5-10.1); Carbon Dioxide 28.5 meq/L (21.0-32.0); Chloride 100 meq/L (98-107); Glomerular Filtration Rate Greater Than 89 mL/min (>89); Glucose,Random 116 mg/dL (74-106); Potassium 3.8 meq/L (3.5-5.1); Sodium 138 meq/L (136-145)
[2018-01-04 08:49] LABS: Lymphocytes 4 % (9-44); Metamyelocytes 5 % (0-1); Monocytes 13 % (0-8); Myelocytes 2 % (0-0)
[2018-01-04 08:50] LABS: Platelet Estimate Normal (Normal); Platelet Morphology Normal (Normal)
[2018-01-04 08:51] LABS: RBC Morphology Normal (Normal)
[2018-01-04] MEDS: Senna/Docusate Sodium 8.6/50 MG Tablet PO SCH ×2 (09:44→20:20)
[2018-01-04] MEDS: Metoprolol Tartrate 25 MG Tablet PO SCH ×2 (09:45→20:20)
[2018-01-04] MEDS: Enoxaparin Inj 30 MG/0.3 ML Syringe SQ SCH ×2 (09:45→20:19)
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
[2018-01-04] MEDS ORDERED: Temazepam 15 MG Capsule PO PRN (16:11)
--- NOTE | 2018-01-04 17:03 | P.PNPOD ---
Subjective Interval history: Patient seen bedside with present. Patient extubated, alert awake and oriented 3. Denies any pain to left lower extremity. Physical Exam Vital signs: Vital Signs 01/03/18 20:00 01/03/18 20:58 01/03/18 22:00 Temperature 98.7 F Pulse Rate 124 H 126 H Respiratory Rate 22 Blood Pressure 129/77 Pulse Oximetry 92 L 93 L 01/04/18 00:00 01/04/18 00:02 01/04/18 04:00 Temperature 98.8 F 98.4 F Pulse Rate 101 H 93 H 111 H Respiratory Rate 18 16 20 Blood Pressure 135/65 121/61 Pulse Oximetry 94 L 93 L 01/04/18 08:00 01/04/18 08:19 01/04/18 12:00 Temperature 98.5 F 98.3 F Pulse Rate 105 H 111 H 102 H Respiratory Rate 18 20 16 Blood Pressure 122/63 120/70 Pulse Oximetry 99 92 L 01/04/18 13:05 01/04/18 16:31 Temperature Pulse Rate 111 H Respiratory Rate 19 18 Blood Pressure Pulse Oximetry Intake & Output 01/03/18 01/04/18 01/04/18 18:59 06:59 18:59 Intake Total 480 / 480 Output Total 400 / 400 Balance 80 / 80 Intake: Oral 480 / 480 Output: Urine Amount (Catheter) 400 / 400 Indwelling Urethral Catheter 400 / 400 Other: Date of Last Bowel Movement 01/03/18 01/03/18 # Bowel Movements 1 Narrative: Bandages are intact with mild sanginous strikethrough. Calf is supple and not swollen. Forefoot is warm and feels perfused. PT and DP pulses palpable. Capillary refill time to digits 5 the left foot. Ex-fix intact with no erythema noted to any pin sites. Medications and Allergies Active Medications: Active Medications Acetaminophen (Tylenol Liq) 650 mg PO Q6H PRN PRN Reason: temp > 100.5 Last Admin: 01/01/18 09:05 Dose: 650 mg Hydrocodone Bitart/Acetaminophen (Tully 10/325) 1 tab PO Q4H PRN PRN Reason: Pain > 3 Last Admin: 01/04/18 16:31 Dose: 1 tab Al Hydroxide/Mg Hydroxide (Milk Of Magnesia Liq) 30 ml PO Q12H PRN PRN Reason: Mild Constipation Albuterol (Duoneb Neb (Prn)) 1 ampul NEB Q2HR NEB PRN PRN Reason: SHORTNESS OF BREATH/WHEEZING Albuterol (Duoneb Neb (Jordan)) 1 ampul INH Q4HR NEB [facility] Last Admin: 01/04/18 13:04 Dose: 1 ampul Bisacodyl (Dulcolax Supp) 10 mg RECTAL DAILY PRN PRN Reason: SEVERE CONSITIPATION Clopidogrel Bisulfate (Plavix) 75 mg PO DAILY [facility] Last Admin: 01/04/18 09:44 Dose: 75 mg Diphenhydramine HCl (Benadryl) 25 mg PO Q6H PRN PRN Reason: ITCHING Enoxaparin Sodium (Lovenox Inj) 30 mg SQ Q12HR [facility] Last Admin: 01/04/18 09:45 Dose: 30 mg Fentanyl (Duragesic 25 Mcg Patch.72hr) 1 patch T-DERMAL Q3D [facility] Last Admin: 01/03/18 10:00 Dose: 1 patch Lactulose (Lactulose Liq) 30 ml PO DAILY PRN PRN Reason: SEVERE CONSITIPATION Melatonin (Melatonin) 5 mg PO [facility] Methocarbamol (Robaxin) 500 mg PO Q8HR [facility] Last Admin: 01/04/18 14:24 Dose: 500 mg Metoprolol Tartrate (Lopressor) 25 mg PO BID [facility] Last Admin: 01/04/18 09:45 Dose: 25 mg Morphine Sulfate (Morphine Inj) 4 mg IV.PUSH Q3H PRN PRN Reason: BREAKTHROUGH PAIN Last Admin: 01/03/18 16:45 Dose: 4 mg Naloxone HCl (Narcan Inj) 0.4 mg IV.PUSH UNSCH PRN PRN Reason: SEE LABEL COMMENTS Ondansetron HCl (Zofran Inj) 4 mg IV.PUSH Q6H PRN PRN Reason: NAUSEA OR VOMITING Pantoprazole Sodium (Protonix) 40 mg PO DAILY [facility] Last Admin: 01/04/18 09:44 Dose: 40 mg Patch Removal (Remove Old Patch) 1 each T-DERMAL Q3D [facility] Senna/Docusate Sodium (Ramona-Colace) 1 tab PO BID [facility] Last Admin: 01/04/18 09:44 Dose: 1 tab Sennosides (Senokot) 17.2 mg PO Q12H PRN PRN Reason: Moderate Constipation Sucralfate (Carafate) 1 gm PO BID PRN PRN Reason: HEARTBURN Last Admin: 01/03/18 20:04 Dose: 1 gm Temazepam (Restoril) 15 mg PO HS PRN PRN Reason: INSOMNIA Allergies Allergy/AdvReac Type Severity Reaction Status Date / Time No Known Allergies Allergy Unverified 12/29/17 04:41 Results - Labs CBC & Chem 7: 01/04/18 06:25 01/04/18 06:25 Laboratory Results - last 24 hr 01/04/18 01/04/18 06:25 06:25 WBC 22.4 H RBC 3.58 L Hgb 11.2 L Hct 32.7 L MCV 91.2 MCH 31.2 MCHC 34.3 RDW 13.3 Plt Count 372 D MPV 7.6 Prelim Diff (Auto) Slide review pending Neut % (Auto) 82.2 H Lymph % (Auto) 6.7 L [place] % (Auto) 10.0 H Eos % (Auto) 0.7 Baso % (Auto) 0.4 Neut # (Auto) 18.5 H Lymph # (Auto) 1.5 [place] # (Auto) 2.2 H Eos # (Auto) 0.2 Baso # (Auto) 0.1 WBC Differential Manual diff final Seg Neuts % (Manual) 71 H Band Neuts % (Manual) 4 Lymphocytes % (Manual) 4 L Monocytes % (Manual) 13 H Basophils % (Manual) 1 Metamyelocytes % (Man) 5 H Myelocytes % (Man) 2 H Abs Neuts (Manual) 18.4 H Differential Comment . Platelet Estimate Normal Platelet Morphology Normal RBC Morphology Normal Sodium 138 Potassium 3.8 Chloride 100 Carbon Dioxide 28.5 Anion Gap 10 BUN 20 H Creatinine 0.89 Estimated GFR Greater than 89 Random Glucose 116 H Calcium 8.4 L - Imaging Impressions Chest X-Ray 01/04/18 00:00 CONCLUSION: Bibasilar areas of mild atelectasis or consolidation. Assessment and Plan - Assessment (1) Closed dislocation of foot Code(s): S93.306A - Unspecified dislocation of unspecified foot, initial encounter Status: Acute (2) Displaced fracture of navicular [scaphoid] of left foot, subsequent encounter for fracture with delayed healing Code(s): S92.252G - Displaced fracture of navicular [scaphoid] of left foot, subsequent encounter for fracture with delayed healing Status: Acute (3) Displaced fracture of cuboid of left foot Code(s): S92.212A - Displaced fracture of cuboid bone of left foot, initial encounter for closed fracture Status: Acute (4) Displaced fracture of left talus Code(s): S92.102A - Unspecified fracture of left talus, initial encounter for closed fracture Status: Acute - Plan 37-year-old male status post open reduction internal fixation, talus, cuboid, navicular, intermediate, lateral, middle cuneiform with application of external fixator uniplane type performed by Dr. Lamar Discussed with patient surgical intervention for definitive fixation of fractures to be performed by Dr. Lamar Discussed with trauma team anticoagulant therapy to be discontinued 5 days prior to surgical intervention, trauma team states he will discontinue anticoagulant tomorrow Dr. Lamar to discuss surgical intervention with patient early next week Nonweightbearing to left lower extremity Surgeon to change dressing to exfix in 1-2 days
[2018-01-04] MEDS: Melatonin 5 MG Tablet PO SCH (20:21)
[2018-01-05] MEDS: Methocarbamol 500 MG Tablet PO SCH ×3 (05:58→21:37)
[2018-01-05] MEDS: Famotidine 20 MG Tablet PO SCH ×2 (09:33→21:37)
[2018-01-05] MEDS: Enoxaparin Inj 30 MG/0.3 ML Syringe SQ SCH ×2 (09:33→21:37)
[2018-01-05] MEDS: Metoprolol Tartrate 25 MG Tablet PO SCH ×2 (09:33→21:37)
[2018-01-05] MEDS: Senna/Docusate Sodium 8.6/50 MG Tablet PO SCH ×2 (09:34→21:36)
[2018-01-05] MEDS: oxyCODONE/Acetaminophen 10/325 Tablet PO PRN ×2 (11:30→18:36)
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
[2018-01-05] MEDS: Melatonin 5 MG Tablet PO SCH (21:37)
[2018-01-06] MEDS: oxyCODONE/Acetaminophen 10/325 Tablet PO PRN ×5 (04:44→22:29)
[2018-01-06] MEDS: Methocarbamol 500 MG Tablet PO SCH ×3 (05:21→21:15)
[2018-01-06 06:04] LABS: Baso # (Auto) 0.1 th/mm3 (0.0-0.2); Baso % (Auto) 0.6 % (0.0-2.0); Eos # (Auto) 0.4 th/mm3 (0.0-0.4); Eos % (Auto) 2.2 % (0.0-4.0); Hematocrit 30.8 % (39.0-51.0); Hemoglobin 10.2 gm/dL (13.0-17.0); Lymph # (Auto) 1.5 th/mm3 (1.0-4.8); Lymph % (Auto) 7.9 % (9.0-44.0); Mean Corpuscular HGB Conc 33.1 % (32.0-36.0); Mean Corpuscular Volume 93.9 fL (80.0-100.0); Mean Platelet Volume 7.6 fL (7.0-11.0); Mono # (Auto) 1.5 th/mm3 (0.0-0.9); Mono % (Auto) 8.3 % (0.0-8.0); Neut # (Auto) 14.9 th/mm3 (1.8-7.7); Platelet Count 435 th/mm3 (150-450); Red Blood Count 3.28 mil/mm3 (4.50-5.90); Red Cell Distribution Width 13.6 % (11.6-17.2); White Blood Count 18.4 th/mm3 (4.0-11.0)
[2018-01-06 07:24] LABS: Eosinophils 2 % (0-4); Lymphocytes 6 % (9-44); Metamyelocytes 7 % (0-1); Monocytes 8 % (0-8); Myelocytes 1 % (0-0); Tallied Nucleated RBC 2 (0-0)
[2018-01-06 07:27] LABS: Platelet Estimate Normal (Normal); Platelet Morphology Normal (Normal); Polychromasia 2.9 % (0.0-1.9)
[2018-01-06] MEDS: Metoprolol Tartrate 25 MG Tablet PO SCH ×2 (08:56→21:14)
[2018-01-06] MEDS: Famotidine 20 MG Tablet PO SCH ×2 (08:56→21:15)
[2018-01-06] MEDS: Enoxaparin Inj 30 MG/0.3 ML Syringe SQ SCH ×2 (08:56→21:16)
[2018-01-06] MEDS: Senna/Docusate Sodium 8.6/50 MG Tablet PO SCH ×2 (09:02→21:15)
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
[2018-01-06] MEDS: Melatonin 5 MG Tablet PO SCH (21:15)
[2018-01-07] MEDS: oxyCODONE/Acetaminophen 10/325 Tablet PO PRN ×6 (02:38→22:28)
[2018-01-07] MEDS: Methocarbamol 500 MG Tablet PO SCH ×3 (05:35→21:00)
[2018-01-07] MEDS: Senna/Docusate Sodium 8.6/50 MG Tablet PO SCH ×2 (08:51→21:00)
[2018-01-07] MEDS: Enoxaparin Inj 30 MG/0.3 ML Syringe SQ SCH ×2 (08:52→21:00)
[2018-01-07] MEDS: Famotidine 20 MG Tablet PO SCH ×2 (08:52→21:00)
[2018-01-07] MEDS: Metoprolol Tartrate 25 MG Tablet PO SCH ×2 (08:52→21:00)
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
--- NOTE | 2018-01-07 16:27 | P.PNPOD ---
Subjective Interval history: Patient has sore ribs otherwise doing well with mild left foot and ankle pain right lower extremity no complaints Physical Exam Vital signs: Vital Signs 01/06/18 19:36 01/06/18 20:00 01/06/18 22:59 Temperature 98.6 F Pulse Rate 109 H 116 H Respiratory Rate 19 18 Blood Pressure 140/64 Pulse Oximetry 93 L 01/06/18 23:41 01/07/18 00:00 01/07/18 03:42 Temperature 99.4 F Pulse Rate 99 H 97 H 81 Respiratory Rate 19 Blood Pressure 120/58 L Pulse Oximetry 91 L 01/07/18 04:00 01/07/18 08:00 01/07/18 12:00 Temperature 97.5 F L 97.9 F 98 F Pulse Rate 87 93 H 16 L Respiratory Rate 18 16 16 Blood Pressure 120/58 L 133/60 119/58 L Pulse Oximetry 94 L 92 L 92 L Intake & Output 01/06/18 01/07/18 01/07/18 18:59 06:59 18:59 Weight 89.6 kg Other: # Voids 3 Date of Last Bowel Movement 01/05/18 01/05/18 Narrative: Bilateral lower extremities examined right lower extremity bandage intact foot is warm mild edema noted good range of motion of digits forefoot hindfoot and ankle. Left lower extremity: Bandage clean dry intact all pins clean dry and intact external fixator of tibia calcaneus medial and lateral foot intact patient capable of digit range of motion foot is warm good alignment noted. - Constitutional no acute distress - Neurological Alert and oriented x3 Medications and Allergies Active Medications: Active Medications Acetaminophen (Tylenol Liq) 650 mg PO Q6H PRN PRN Reason: temp > 100.5 Last Admin: 01/01/18 09:05 Dose: 650 mg Al Hydroxide/Mg Hydroxide (Milk Of Magnesia Liq) 30 ml PO Q12H PRN PRN Reason: Mild Constipation Albuterol (Duoneb Neb (Prn)) 1 ampul NEB Q2HR NEB PRN PRN Reason: SHORTNESS OF BREATH/WHEEZING Bisacodyl (Dulcolax Supp) 10 mg RECTAL DAILY PRN PRN Reason: SEVERE CONSITIPATION Clopidogrel Bisulfate (Plavix) 75 mg PO DAILY [facility] Last Admin: 01/04/18 09:44 Dose: 75 mg Diphenhydramine HCl (Benadryl) 25 mg PO Q6H PRN PRN Reason: ITCHING Last Admin: 01/07/18 10:23 Dose: 25 mg Enoxaparin Sodium (Lovenox Inj) 30 mg SQ Q12HR [facility] Last Admin: 01/07/18 08:52 Dose: 30 mg Famotidine (Pepcid) 20 mg PO BID [facility] Last Admin: 01/07/18 08:52 Dose: 20 mg Fentanyl (Duragesic 50 Mcg Patch.72hr) 1 patch T-DERMAL Q3D [facility] Last Admin: 01/05/18 07:58 Dose: 1 patch Lactulose (Lactulose Liq) 30 ml PO DAILY PRN PRN Reason: SEVERE CONSITIPATION Melatonin (Melatonin) 5 mg PO HS [facility] Last Admin: 01/06/18 21:15 Dose: 5 mg Methocarbamol (Robaxin) 500 mg PO Q8HR [facility] Last Admin: 01/07/18 14:38 Dose: 500 mg Metoprolol Tartrate (Lopressor) 25 mg PO BID [facility] Last Admin: 01/07/18 08:52 Dose: 25 mg Morphine Sulfate (Morphine Inj) 4 mg IV.PUSH Q3H PRN PRN Reason: BREAKTHROUGH PAIN Last Admin: 01/03/18 16:45 Dose: 4 mg Naloxone HCl (Narcan Inj) 0.4 mg IV.PUSH UNSCH PRN PRN Reason: SEE LABEL COMMENTS Ondansetron HCl (Zofran Inj) 4 mg IV.PUSH Q6H PRN PRN Reason: NAUSEA OR VOMITING Oxycodone/Acetaminophen (Percocet 5/325 Mg) 1 tab PO Q4H PRN PRN Reason: PAIN 3-5 Last Admin: 01/05/18 01:41 Dose: 1 tab Oxycodone/Acetaminophen (Percocet 10/325 Mg) 1 tab PO Q4H PRN PRN Reason: PAIN SCALE 6 TO 10 Last Admin: 01/07/18 14:38 Dose: 1 tab Patch Removal (Remove Old Patch) 1 each T-DERMAL Q3D [facility] Last Admin: 01/06/18 10:03 Dose: Not Given Patch Removal (Remove Old Patch) 1 each T-DERMAL Q3D [facility] Senna/Docusate Sodium (Ramona-Colace) 1 tab PO BID [facility] Last Admin: 01/07/18 08:51 Dose: Not Given Sennosides (Senokot) 17.2 mg PO Q12H PRN PRN Reason: Moderate Constipation Sucralfate (Carafate) 1 gm PO BID PRN PRN Reason: HEARTBURN Last Admin: 01/03/18 20:04 Dose: 1 gm Temazepam (Restoril) 15 mg PO HS PRN PRN Reason: INSOMNIA Last Admin: 01/04/18 20:20 Dose: 15 mg Allergies Allergy/AdvReac Type Severity Reaction Status Date / Time No Known Allergies Allergy Unverified 12/29/17 04:41 Results - Labs CBC & Chem 7: 01/06/18 04:00 01/04/18 06:25 Assessment and Plan - Assessment (1) Closed dislocation of foot Code(s): S93.306A - Unspecified dislocation of unspecified foot, initial encounter Status: Acute (2) Displaced fracture of navicular [scaphoid] of left foot, subsequent encounter for fracture with delayed healing Code(s): S92.252G - Displaced fracture of navicular [scaphoid] of left foot, subsequent encounter for fracture with delayed healing Status: Acute (3) Displaced fracture of cuboid of left foot Code(s): S92.212A - Displaced fracture of cuboid bone of left foot, initial encounter for closed fracture Status: Acute (4) Displaced fracture of left talus Code(s): S92.102A - Unspecified fracture of left talus, initial encounter for closed fracture Status: Acute - Plan Reviewed with patient and family the need for definitive surgery ORIF of navicular talus midfoot and possible adjustment of external fixator. We will continued for swelling to resolve. I will take down bandage tomorrow to thoroughly examine anticipate surgery this coming Saturday. Please keep patient off Plavix. White blood cell trend is high however appears to be clinically correlating with trauma.
[2018-01-07] MEDS: Melatonin 5 MG Tablet PO SCH (21:00)
[2018-01-08] MEDS: oxyCODONE/Acetaminophen 10/325 Tablet PO PRN ×5 (02:24→18:57)
[2018-01-08] MEDS: Methocarbamol 500 MG Tablet PO SCH ×3 (06:36→21:00)
[2018-01-08] MEDS: Senna/Docusate Sodium 8.6/50 MG Tablet PO SCH ×2 (08:58→21:20)
[2018-01-08] MEDS: Famotidine 20 MG Tablet PO SCH ×2 (08:58→20:51)
[2018-01-08] MEDS: Enoxaparin Inj 30 MG/0.3 ML Syringe SQ SCH ×2 (08:58→21:00)
[2018-01-08] MEDS: Metoprolol Tartrate 25 MG Tablet PO SCH ×2 (08:58→20:51)
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
--- NOTE | 2018-01-08 17:53 | P.PNPOD ---
Subjective Interval history: pain is some what controlled, understands plan and progress re: planned left foot surgery for saturday Physical Exam Vital signs: Vital Signs 01/07/18 20:00 01/08/18 00:00 01/08/18 04:00 Temperature 98.2 F 98.8 F Pulse Rate 110 H 92 H Respiratory Rate 17 17 18 Blood Pressure 125/60 125/55 L Pulse Oximetry 92 L 92 L 01/08/18 06:53 01/08/18 07:53 01/08/18 08:53 Temperature 97.4 F L 98.4 F 98.5 F Pulse Rate 110 H 98 H 102 H Respiratory Rate 18 18 Blood Pressure 141/63 H 129/60 115/55 L Pulse Oximetry 93 L 94 L 91 L 01/08/18 09:03 01/08/18 09:27 01/08/18 09:53 Temperature 98.3 F Pulse Rate 100 H Respiratory Rate 18 18 18 Blood Pressure 125/60 Pulse Oximetry 94 L 01/08/18 13:53 Temperature 98.3 F Pulse Rate 98 H Respiratory Rate 18 Blood Pressure 110/53 L Pulse Oximetry 94 L Intake & Output 01/07/18 01/08/18 01/08/18 18:59 06:59 18:59 Intake Total 1080 / 1080 Balance 1080 / 1080 Weight 89.6 kg Intake: Oral 1080 / 1080 Other: # Voids 2 4 Date of Last Bowel Movement 01/07/18 01/07/18 01/05/18 # Bowel Movements 1 Narrative: Left lower extremity examined: External fixator pins of the tibia calcaneus first metatarsal and fifth metatarsal without complication intact, good alignment of the patient's distal tibia hindfoot and forefoot. Soft tissue no fracture blisters no ischemic changes no signs of infection moderate edema noted dorsum foot pedal pulses palpable posterior tibialis and dorsalis pedis, sensation intact to light touch and deep pressure, mild plantar lateral hindfoot and medial arch bruising noted no signs of clinical compartment syndrome. Right lower extremity: Good range of motion of foot and ankle posterior leg ankle bandage intact foot is warm pedal pulses palpable sensation intact. Medications and Allergies Active Medications: Active Medications Acetaminophen (Tylenol Liq) 650 mg PO Q6H PRN PRN Reason: temp > 100.5 Last Admin: 01/01/18 09:05 Dose: 650 mg Al Hydroxide/Mg Hydroxide (Milk Of Magnesia Liq) 30 ml PO Q12H PRN PRN Reason: Mild Constipation Albuterol (Duoneb Neb (Prn)) 1 ampul NEB Q2HR NEB PRN PRN Reason: SHORTNESS OF BREATH/WHEEZING Bisacodyl (Dulcolax Supp) 10 mg RECTAL DAILY PRN PRN Reason: SEVERE CONSITIPATION Clopidogrel Bisulfate (Plavix) 75 mg PO DAILY [facility] Last Admin: 01/04/18 09:44 Dose: 75 mg Diphenhydramine HCl (Benadryl) 25 mg PO Q6H PRN PRN Reason: ITCHING Last Admin: 01/08/18 10:27 Dose: 25 mg Enoxaparin Sodium (Lovenox Inj) 30 mg SQ Q12HR [facility] Last Admin: 01/08/18 08:58 Dose: 30 mg Famotidine (Pepcid) 20 mg PO BID [facility] Last Admin: 01/08/18 08:58 Dose: 20 mg Fentanyl (Duragesic 50 Mcg Patch.72hr) 1 patch T-DERMAL Q3D [facility] Last Admin: 01/08/18 08:57 Dose: 1 patch Gabapentin (Neurontin) 300 mg PO TID [facility] Lactulose (Lactulose Liq) 30 ml PO DAILY PRN PRN Reason: SEVERE CONSITIPATION Melatonin (Melatonin) 5 mg PO HS [facility] Last Admin: 01/07/18 21:00 Dose: 5 mg Methocarbamol (Robaxin) 500 mg PO Q8HR [facility] Last Admin: 01/08/18 14:35 Dose: 500 mg Metoprolol Tartrate (Lopressor) 25 mg PO BID [facility] Last Admin: 01/08/18 08:58 Dose: 25 mg Morphine Sulfate (Morphine Inj) 4 mg IV.PUSH Q3H PRN PRN Reason: BREAKTHROUGH PAIN Last Admin: 01/03/18 16:45 Dose: 4 mg Naloxone HCl (Narcan Inj) 0.4 mg IV.PUSH UNSCH PRN PRN Reason: SEE LABEL COMMENTS Ondansetron HCl (Zofran Inj) 4 mg IV.PUSH Q6H PRN PRN Reason: NAUSEA OR VOMITING Oxycodone/Acetaminophen (Percocet 5/325 Mg) 1 tab PO Q4H PRN PRN Reason: PAIN 3-5 Last Admin: 01/05/18 01:41 Dose: 1 tab Oxycodone/Acetaminophen (Percocet 10/325 Mg) 1 tab PO Q4H PRN PRN Reason: PAIN SCALE 6 TO 10 Last Admin: 01/08/18 14:35 Dose: 1 tab Patch Removal (Remove Old Patch) 1 each T-DERMAL Q3D [facility] Last Admin: 01/06/18 10:03 Dose: Not Given Patch Removal (Remove Old Patch) 1 each T-DERMAL Q3D [facility] Last Admin: 01/08/18 08:59 Dose: 1 each Senna/Docusate Sodium (Ramona-Colace) 1 tab PO BID [facility] Last Admin: 01/08/18 08:58 Dose: Not Given Sennosides (Senokot) 17.2 mg PO Q12H PRN PRN Reason: Moderate Constipation Sucralfate (Carafate) 1 gm PO BID PRN PRN Reason: HEARTBURN Last Admin: 01/03/18 20:04 Dose: 1 gm Temazepam (Restoril) 15 mg PO HS PRN PRN Reason: INSOMNIA Last Admin: 01/04/18 20:20 Dose: 15 mg Allergies Allergy/AdvReac Type Severity Reaction Status Date / Time No Known Allergies Allergy Unverified 12/29/17 04:41 Results - Labs CBC & Chem 7: 01/06/18 04:00 01/04/18 06:25 Assessment and Plan - Assessment (1) Closed dislocation of foot Code(s): S93.306A - Unspecified dislocation of unspecified foot, initial encounter Status: Acute (2) Displaced fracture of navicular [scaphoid] of left foot, subsequent encounter for fracture with delayed healing Code(s): S92.252G - Displaced fracture of navicular [scaphoid] of left foot, subsequent encounter for fracture with delayed healing Status: Acute (3) Displaced fracture of cuboid of left foot Code(s): S92.212A - Displaced fracture of cuboid bone of left foot, initial encounter for closed fracture Status: Acute (4) Displaced fracture of left talus Code(s): S92.102A - Unspecified fracture of left talus, initial encounter for closed fracture Status: Acute - Plan Reviewed with patient and family the need for definitive surgery ORIF of navicular talus midfoot and possible adjustment of external fixator with possible ankle osteotomy to gain access to talar fracture. Soft tissue envelope appears supple and ready for definitive ORIF which will take place saturday. Repeat CBC added Neurontin for pain control. I reviewed in great detail the nature of the patient's injury will likely cause avascular necrosis and early onset of arthritis of the talus navicular midfoot and calcaneal cuboid as well as subtalar joint articulations. The patient has a high risk of needing a triple arthrodesis type procedure at a later date due to the high risk of complications regarding his injury. The plan is to repair the fractures as best as possible we will likely inject OrthoBiologics to help with bone healing. External fixator will likely stay intact and be removed at a later date as the patient's healing progress continues. Risks and benefits explained including but not limited to pain, stiffness, need for removal of hardware, possible blood clot-DVT, complications of DVT, pulmonary embolism, and infection. Verbal informed written consent took place the patient consented for the procedure.
[2018-01-08] MEDS ORDERED: Gabapentin 300 MG Capsule PO SCH (18:00)
[2018-01-08] MEDS: Melatonin 5 MG Tablet PO SCH (20:51)
[2018-01-09] MEDS: oxyCODONE/Acetaminophen 10/325 Tablet PO PRN ×6 (00:49→22:53)
[2018-01-09 04:37] LABS: Baso # (Auto) 0.1 th/mm3 (0.0-0.2); Baso % (Auto) 0.6 % (0.0-2.0); Eos # (Auto) 0.5 th/mm3 (0.0-0.4); Eos % (Auto) 3.4 % (0.0-4.0); Hematocrit 29.6 % (39.0-51.0); Hemoglobin 9.9 gm/dL (13.0-17.0); Lymph # (Auto) 1.7 th/mm3 (1.0-4.8); Lymph % (Auto) 12.4 % (9.0-44.0); Mean Corpuscular HGB Conc 33.6 % (32.0-36.0); Mean Corpuscular Hemoglobin 31.9 pg (27.0-34.0); Mean Corpuscular Volume 94.9 fL (80.0-100.0); Mean Platelet Volume 7.2 fL (7.0-11.0); Mono % (Auto) 7.4 % (0.0-8.0); Neut # (Auto) 10.5 th/mm3 (1.8-7.7); Neut % (Auto) 76.2 % (16.0-70.0); Platelet Count 434 th/mm3 (150-450); Red Blood Count 3.12 mil/mm3 (4.50-5.90); Red Cell Distribution Width 14.6 % (11.6-17.2); White Blood Count 13.7 th/mm3 (4.0-11.0)
[2018-01-09 05:02] LABS: Anion Gap 8 meq/L (5-15); Calcium 8.3 mg/dL (8.5-10.1); Carbon Dioxide 28.7 meq/L (21.0-32.0); Chloride 102 meq/L (98-107); Glomerular Filtration Rate Greater Than 89 mL/min (>89); Glucose,Random 114 mg/dL (74-106); Potassium 3.7 meq/L (3.5-5.1); Sodium 139 meq/L (136-145)
[2018-01-09 05:03] LABS: Blood Urea Nitrogen 12 mg/dL (7-18)
[2018-01-09] MEDS: Methocarbamol 500 MG Tablet PO SCH ×3 (06:15→22:54)
[2018-01-09 08:01] LABS: Eosinophils 3 % (0-4); Lymphocytes 8 % (9-44); Metamyelocytes 5 % (0-1); Monocytes 12 % (0-8)
[2018-01-09 08:03] LABS: Platelet Estimate Normal (Normal); Platelet Morphology Normal (Normal)
[2018-01-09] MEDS: Famotidine 20 MG Tablet PO SCH ×2 (09:06→22:53)
[2018-01-09] MEDS: Enoxaparin Inj 30 MG/0.3 ML Syringe SQ SCH ×2 (09:06→22:56)
[2018-01-09] MEDS: Senna/Docusate Sodium 8.6/50 MG Tablet PO SCH ×2 (09:06→22:54)
[2018-01-09] MEDS: Metoprolol Tartrate 25 MG Tablet PO SCH ×2 (10:53→22:53)
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
[2018-01-09] MEDS: Melatonin 5 MG Tablet PO SCH (22:53)
[2018-01-10] MEDS ORDERED: Chlorhexidine Gluconate 2% 1 Pack (2 Cloths) TOPICAL SCH (02:15)
[2018-01-10] MEDS ORDERED: Sodium Chlor 0.9% Inj 500 ML IV.SIG SCH (03:00)
[2018-01-10] MEDS: Methocarbamol 500 MG Tablet PO SCH ×3 (06:00→22:18)
[2018-01-10] MEDS: Metoprolol Tartrate 25 MG Tablet PO SCH ×3 (06:00→22:19)
[2018-01-10] MEDS ORDERED: Bupivacaine PF 0.25% Inj 30 ML Vial ONE (08:56)
[2018-01-10] MEDS ORDERED: Lidocaine PF 1% Inj 5 ML Syringe INFILTRATN ONE (12:00)
[2018-01-10] MEDS ORDERED: Labetalol HCl Inj 100 MG/20 ML Vial IV.CONT ONE (12:00)
[2018-01-10] MEDS ORDERED: Succinylcholine Inj 100 MG/5 ML Syringe IV.PUSH ONE (12:00)
--- NOTE | 2018-01-10 12:02 | P.PNPOD ---
Subjective Interval history: ready for surgery Physical Exam Vital signs: Vital Signs 01/09/18 13:50 01/09/18 16:00 01/09/18 20:00 Temperature 98.6 F 98 F Pulse Rate 95 H 97 H Respiratory Rate 16 16 20 Blood Pressure 115/65 110/60 Pulse Oximetry 92 L 94 L 01/09/18 23:23 01/10/18 00:00 01/10/18 01:44 Temperature 99.4 F Pulse Rate 95 H Respiratory Rate 18 20 18 Blood Pressure 106/55 L Pulse Oximetry 94 L 01/10/18 04:00 Temperature 98.7 F Pulse Rate 90 Respiratory Rate 20 Blood Pressure 114/55 L Pulse Oximetry 95 Intake & Output 01/09/18 01/10/18 01/10/18 18:59 06:59 18:59 Intake Total 500 / 500 Output Total 240 / 240 Balance 260 / 260 Weight 89.6 kg Intake: Oral 500 / 500 Output: Urine 240 / 240 Other: Date of Last Bowel Movement 01/09/18 Narrative: unchanged ex fix intact NVS intact BL Medications and Allergies Active Medications: Active Medications Acetaminophen (Tylenol Liq) 650 mg PO Q6H PRN PRN Reason: temp > 100.5 Last Admin: 01/01/18 09:05 Dose: 650 mg Al Hydroxide/Mg Hydroxide (Milk Of Magnesia Liq) 30 ml PO Q12H PRN PRN Reason: Mild Constipation Albuterol (Duoneb Neb (Prn)) 1 ampul NEB Q2HR NEB PRN PRN Reason: SHORTNESS OF BREATH/WHEEZING Bisacodyl (Dulcolax Supp) 10 mg RECTAL DAILY PRN PRN Reason: SEVERE CONSITIPATION Chlorhexidine Gluconate (Chlorhexidine 2% Cloth) 3 pack [employer] [facility] Stop: 01/13/18 02:04 Clopidogrel Bisulfate (Plavix) 75 mg PO DAILY [facility] Last Admin: 01/04/18 09:44 Dose: 75 mg Diphenhydramine HCl (Benadryl) 25 mg PO Q6H PRN PRN Reason: ITCHING Last Admin: 01/09/18 19:41 Dose: 25 mg Enoxaparin Sodium (Lovenox Inj) 30 mg SQ Q12HR [facility] Last Admin: 01/09/18 22:56 Dose: Not Given Famotidine (Pepcid) 20 mg PO BID [facility] Last Admin: 01/09/18 22:53 Dose: 20 mg Fentanyl (Duragesic 50 Mcg Patch.72hr) 1 patch T-DERMAL Q3D [facility] Last Admin: 01/08/18 08:57 Dose: 1 patch Lactated Ringer's (Lr 1000 Ml Inj) 1,000 mls @ 30 mls/hr IV.SIG .Q24H [facility] Stop: 01/13/18 02:04 Sodium Chloride (Ns Inj) 500 mls @ 30 mls/hr IV.SIG .Q10H [facility] Stop: 01/13/18 02:04 Lactulose (Lactulose Liq) 30 ml PO DAILY PRN PRN Reason: SEVERE CONSITIPATION Melatonin (Melatonin) 5 mg PO HS [facility] Last Admin: 01/09/18 22:53 Dose: 5 mg Methocarbamol (Robaxin) 500 mg PO Q8HR [facility] Last Admin: 01/10/18 06:00 Dose: 500 mg Metoprolol Tartrate (Lopressor) 25 mg PO BID [facility] Last Admin: 01/10/18 10:53 Dose: 25 mg Morphine Sulfate (Morphine Inj) 4 mg IV.PUSH Q3H PRN PRN Reason: BREAKTHROUGH PAIN Last Admin: 01/03/18 16:45 Dose: 4 mg Naloxone HCl (Narcan Inj) 0.4 mg IV.PUSH UNSCH PRN PRN Reason: SEE LABEL COMMENTS Ondansetron HCl (Zofran Inj) 4 mg IV.PUSH Q6H PRN PRN Reason: NAUSEA OR VOMITING Oxycodone/Acetaminophen (Percocet 5/325 Mg) 1 tab PO Q4H PRN PRN Reason: PAIN 3-5 Last Admin: 01/05/18 01:41 Dose: 1 tab Oxycodone/Acetaminophen (Percocet 10/325 Mg) 1 tab PO Q4H PRN PRN Reason: PAIN SCALE 6 TO 10 Last Admin: 01/09/18 22:53 Dose: 1 tab Patch Removal (Remove Old Patch) 1 each T-DERMAL Q3D [facility] Last Admin: 01/09/18 17:26 Dose: Not Given Patch Removal (Remove Old Patch) 1 each T-DERMAL Q3D [facility] Last Admin: 01/08/18 08:59 Dose: 1 each Povidone Iodine (Betadine 5% Antisepsis Kit) 1 applicatio EACH [employer] [facility] Stop: 01/13/18 02:04 Senna/Docusate Sodium (Ramona-Colace) 1 tab PO BID [facility] Last Admin: 01/09/18 22:54 Dose: Not Given Sennosides (Senokot) 17.2 mg PO Q12H PRN PRN Reason: Moderate Constipation Sucralfate (Carafate) 1 gm PO BID PRN PRN Reason: HEARTBURN Last Admin: 01/03/18 20:04 Dose: 1 gm Temazepam (Restoril) 15 mg PO HS PRN PRN Reason: INSOMNIA Last Admin: 01/04/18 20:20 Dose: 15 mg Allergies Allergy/AdvReac Type Severity Reaction Status Date / Time gabapentin [From Neurontin] Allergy Hallucinati Verified 01/10/18 11:25 ons Results - Labs CBC & Chem 7: 01/09/18 03:09 01/09/18 03:09 Assessment and Plan - Assessment (1) Closed dislocation of foot Code(s): S93.306A - Unspecified dislocation of unspecified foot, initial encounter Status: Acute (2) Displaced fracture of navicular [scaphoid] of left foot, subsequent encounter for fracture with delayed healing Code(s): S92.252G - Displaced fracture of navicular [scaphoid] of left foot, subsequent encounter for fracture with delayed healing Status: Acute (3) Displaced fracture of cuboid of left foot Code(s): S92.212A - Displaced fracture of cuboid bone of left foot, initial encounter for closed fracture Status: Acute (4) Displaced fracture of left talus Code(s): S92.102A - Unspecified fracture of left talus, initial encounter for closed fracture Status: Acute - Plan Surgery today stopped Neurontin, no new issues, seen in pre op.
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
[2018-01-10] MEDS: Senna/Docusate Sodium 8.6/50 MG Tablet PO SCH ×2 (14:57→22:18)
[2018-01-10] MEDS: Famotidine 20 MG Tablet PO SCH ×2 (14:57→22:17)
[2018-01-10] MEDS: Enoxaparin Inj 30 MG/0.3 ML Syringe SQ SCH ×2 (14:58→22:21)
--- NOTE | 2018-01-10 17:15 | P.BOP ---
- Preoperative Diagnosis (1) Displaced fracture of navicular [scaphoid] of left foot, subsequent encounter for fracture with delayed healing (2) Displaced fracture of left talus - Postoperative Diagnosis (1) Displaced fracture of navicular [scaphoid] of left foot, subsequent encounter for fracture with delayed healing (2) Displaced fracture of left talus Date of procedure: 01/10/18 Procedure: ORIF talus, navicular. Modification of Ex fix under anesthesia Implants: Synthes talar plate, screws 2.7, 3.0, 3.5 ViviGen 5cc 20cc 0.25% Marcaine [place]. Anesthesia: GETA Surgeon: CALIN Lindquist DPM Estimated blood loss (mL): 20 (mL) Tourniquet time (min): 190 (250mmhg, dropped at 120 m for 10 min, up again for 75 minutes) Condition: stable Disposition: floor
--- NOTE | 2018-01-10 17:18 | XR ---
EXAM DATE: 01/10/2018 5:15 PM EDT AGE/SEX: 37 years / Male INDICATIONS: ORIF of the left talus. CLINICAL DATA: This is the patient's subsequent encounter. Patient reports that signs and symptoms h ave been present for 2 weeks and indicates a pain score of Nonresponsive. MEDICAL/SURGICAL HISTORY: None. . External fixator placement. COMPARISON: [facility] [place], CT ANKLE LEFT W/O CONTRAST, 12/30/2017. . FINDINGS: Multiple screws traverse multiple tarsal bones and there are external fixation screws traversing the proximal metatarsal row in addition to the calcaneus. There is gross anatomical alignment of the bony structures. CONCLUSION: Gross anatomical alignment. Electronically signed by: Ysabel Hyatt MD 01/10/2018 5:16 PM EDT
[2018-01-10] MEDS ORDERED: Morphine Sulfate Inj 2 MG/ML Vial ONE (18:10)
[2018-01-10] MEDS: oxyCODONE/Acetaminophen 10/325 Tablet PO PRN (19:57)
[2018-01-10] MEDS: Morphine Inj 4 MG/ML Vial IV.PUSH PRN (22:12)
[2018-01-10] MEDS: Melatonin 5 MG Tablet PO SCH (22:20)
--- NOTE | 2018-01-10 22:53 | XR ---
EXAM DATE: 01/10/2018 10:32 PM EDT AGE/SEX: 37 years / Male INDICATIONS: Post op left ankle and foot surgery. CLINICAL DATA: This is the patient's subsequent encounter. Patient reports that signs and symptoms h ave been present for 4 - 6 days and indicates a pain score of 10/10. MEDICAL/SURGICAL HISTORY: None. None. COMPARISON: No prior exams available for comparison. FINDINGS: Internal and external fixation hardware is present about the ankle. External fixation braces are also present in the mid tibia and forefoot. Moderate lateral soft tissue swelling. CONCLUSION: Internal and external fixation hardware in place. Electronically signed by: Alfonzo Willingham MD 01/10/2018 10:52 PM EDT
--- NOTE | 2018-01-10 22:55 | XR ---
EXAM DATE: 01/10/2018 10:30 PM EDT AGE/SEX: 37 years / Male INDICATIONS: Post op left ankle and foot surgery. CLINICAL DATA: This is the patient's subsequent encounter. Patient reports that signs and symptoms h ave been present for 4 - 6 days and indicates a pain score of 10/10. MEDICAL/SURGICAL HISTORY: None. None. COMPARISON: C, ANKLE COMPLETE LEFT MIN 3V, 01/10/2018. [facility] [place], FOOT LEFT 1V, 12/28/2017. [facility] [place], MARV T COMPLETE LEFT 3V, 01/10/2018. . FINDINGS: Internal and external fixation hardware is present about the midfoot. The bony structures are grossly normal alignment. There is a nondisplaced fracture of the distal metaphysis of the fifth metatarsus. CONCLUSION: Internal and external fixation hardware in place. Electronically signed by: Alfonzo Willingham MD 01/10/2018 10:54 PM EDT
[2018-01-11] MEDS: oxyCODONE/Acetaminophen 10/325 Tablet PO PRN ×6 (00:10→22:21)
[2018-01-11] MEDS: Morphine Inj 4 MG/ML Vial IV.PUSH PRN ×6 (03:43→23:54)
[2018-01-11 04:42] LABS: Baso # (Auto) 0.1 th/mm3 (0.0-0.2); Baso % (Auto) 0.4 % (0.0-2.0); Eos # (Auto) 0.1 th/mm3 (0.0-0.4); Eos % (Auto) 0.5 % (0.0-4.0); Hemoglobin 10.4 gm/dL (13.0-17.0); Lymph # (Auto) 1.4 th/mm3 (1.0-4.8); Lymph % (Auto) 8.8 % (9.0-44.0); Mean Corpuscular HGB Conc 32.4 % (32.0-36.0); Mean Corpuscular Hemoglobin 30.7 pg (27.0-34.0); Mean Corpuscular Volume 94.6 fL (80.0-100.0); Mean Platelet Volume 6.8 fL (7.0-11.0); Mono # (Auto) 1.3 th/mm3 (0.0-0.9); Mono % (Auto) 8.2 % (0.0-8.0); Neut # (Auto) 13.5 th/mm3 (1.8-7.7); Neut % (Auto) 82.1 % (16.0-70.0); Platelet Count 469 th/mm3 (150-450); Red Blood Count 3.38 mil/mm3 (4.50-5.90); Red Cell Distribution Width 14.2 % (11.6-17.2); White Blood Count 16.5 th/mm3 (4.0-11.0)
[2018-01-11 04:56] LABS: Calcium 8.9 mg/dL (8.5-10.1); Carbon Dioxide 31.9 meq/L (21.0-32.0); Potassium 4.6 meq/L (3.5-5.1)
[2018-01-11 06:38] LABS: Platelet Morphology Normal (Normal)
[2018-01-11] MEDS: Methocarbamol 500 MG Tablet PO SCH ×3 (06:40→22:26)
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
[2018-01-11] MEDS: Enoxaparin Inj 30 MG/0.3 ML Syringe SQ SCH ×2 (09:04→20:49)
[2018-01-11] MEDS: Famotidine 20 MG Tablet PO SCH ×2 (09:04→20:49)
[2018-01-11] MEDS: Metoprolol Tartrate 25 MG Tablet PO SCH ×2 (09:04→20:49)
[2018-01-11] MEDS: Senna/Docusate Sodium 8.6/50 MG Tablet PO SCH ×2 (09:04→20:49)
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
[2018-01-11] MEDS ORDERED: Bupivacaine PF 0.5% Inj 30 ML Vial NERV BLOCK ONE (11:00)
[2018-01-11] MEDS: Ketorolac Inj 30 MG/ML (IVP) Vial IV.PUSH SCH ×3 (11:20→22:20)
[2018-01-11] MEDS ORDERED: Bupivacaine 0.5% Inj 50 ML MDV Vial NERV BLOCK ONE (13:00)
--- NOTE | 2018-01-11 13:23 | P.PNPOD ---
Subjective Interval history: s/p ORIF left talus, ORIF left navicular, adjustment of external fixation left foot/ankle Dr Lamar/Mami 01/10/18 Physical Exam Vital signs: Vital Signs 01/10/18 17:12 01/10/18 17:30 01/10/18 17:45 Temperature 98.4 F Pulse Rate 96 H 97 H 97 H Respiratory Rate 20 16 20 Blood Pressure 119/68 130/71 124/71 Pulse Oximetry 90 L 93 L 96 01/10/18 18:00 01/10/18 20:00 01/10/18 20:03 Temperature 97.5 F L Pulse Rate 94 H 97 H Respiratory Rate 20 20 18 Blood Pressure 123/65 131/60 Pulse Oximetry 94 L 97 01/10/18 20:30 01/10/18 22:14 01/11/18 00:00 Temperature 98.5 F Pulse Rate 106 H Respiratory Rate 18 18 18 Blood Pressure 109/56 L Pulse Oximetry 91 L 01/11/18 04:00 01/11/18 08:00 01/11/18 12:00 Temperature 98.8 F 98.4 F 98.2 F Pulse Rate 96 H 98 H 89 Respiratory Rate 18 16 20 Blood Pressure 113/56 L 118/58 L 118/56 L Pulse Oximetry 95 96 94 L Intake & Output 01/10/18 01/11/18 01/11/18 18:59 06:59 18:59 Intake Total 2099 360 / 360 Output Total 400 / 400 Balance 0 / 0 -40 / -40 Weight 89.9 kg Intake: Oral 360 / 360 Anesthesia Amount 2099 Output: Urine 400 / 400 Estimated Blood Loss Other: Date of Last Bowel Movement 01/09/18 01/09/18 Narrative: Neurovascularly intact left lower extremity. Splint/bandage clean, dry, intact. Medications and Allergies Active Medications: Active Medications Acetaminophen (Tylenol Liq) 650 mg PO Q6H PRN PRN Reason: temp > 100.5 Last Admin: 01/01/18 09:05 Dose: 650 mg Al Hydroxide/Mg Hydroxide (Milk Of Magnesia Liq) 30 ml PO Q12H PRN PRN Reason: Mild Constipation Albuterol (Duoneb Neb (Prn)) 1 ampul NEB Q2HR NEB PRN PRN Reason: SHORTNESS OF BREATH/WHEEZING Bisacodyl (Dulcolax Supp) 10 mg RECTAL DAILY PRN PRN Reason: SEVERE CONSITIPATION Chlorhexidine Gluconate (Chlorhexidine 2% Cloth) 3 pack [facility]IAT[facility] N[facility]SE PRACTITION[facility] Stop: 01/13/18 02:04 Clopidogrel Bisulfate (Plavix) 75 mg PO DAILY [facility] Last Admin: 01/04/18 09:44 Dose: 75 mg Diphenhydramine HCl (Benadryl) 25 mg PO Q6H PRN PRN Reason: ITCHING Last Admin: 01/10/18 19:57 Dose: 25 mg Enoxaparin Sodium (Lovenox Inj) 30 mg SQ Q12HR [facility] Last Admin: 01/11/18 09:04 Dose: 30 mg Famotidine (Pepcid) 20 mg PO BID [facility] Last Admin: 01/11/18 09:04 Dose: 20 mg Fentanyl (Duragesic 50 Mcg Patch.72hr) 1 patch T-DERMAL Q3D [facility] Last Admin: 01/11/18 06:39 Dose: 1 patch Lactated Ringer's (Lr 1000 Ml Inj) 1,000 mls @ 30 mls/hr IV.SIG .Q24H [facility] Stop: 01/13/18 02:04 Last Admin: 01/11/18 02:15 Dose: Not Given Sodium Chloride (Ns Inj) 500 mls @ 30 mls/hr IV.SIG .Q10H [facility] Stop: 01/13/18 02:04 Ketorolac Tromethamine (Toradol Inj) 15 mg IV.PUSH Q6H [facility] Stop: 01/16/18 10:59 Last Admin: 01/11/18 11:20 Dose: 15 mg Lactulose (Lactulose Liq) 30 ml PO DAILY PRN PRN Reason: SEVERE CONSITIPATION Melatonin (Melatonin) 5 mg PO HS [facility] Last Admin: 01/10/18 22:20 Dose: 5 mg Methocarbamol (Robaxin) 500 mg PO Q8HR [facility] Last Admin: 01/11/18 06:40 Dose: 500 mg Metoprolol Tartrate (Lopressor) 25 mg PO BID [facility] Last Admin: 01/11/18 09:04 Dose: 25 mg Miscellaneous Information (Misc Nursing Information) 1 each OTHER UNSCH PRN PRN Reason: SEE LABEL COMMENTS Stop: 01/11/18 17:14 Morphine Sulfate (Morphine Inj) 4 mg IV.PUSH Q3H PRN PRN Reason: BREAKTHROUGH PAIN Last Admin: 01/11/18 09:05 Dose: 4 mg Naloxone HCl (Narcan Inj) 0.4 mg IV.PUSH UNSCH PRN PRN Reason: SEE LABEL COMMENTS Ondansetron HCl (Zofran Inj) 4 mg IV.PUSH Q6H PRN PRN Reason: NAUSEA OR VOMITING Oxycodone/Acetaminophen (Percocet 5/325 Mg) 1 tab PO Q4H PRN PRN Reason: PAIN 3-5 Last Admin: 01/05/18 01:41 Dose: 1 tab Oxycodone/Acetaminophen (Percocet 10/325 Mg) 1 tab PO Q4H PRN PRN Reason: PAIN SCALE 6 TO 10 Last Admin: 01/11/18 10:35 Dose: 1 tab Patch Removal (Remove Old Patch) 1 each T-DERMAL Q3D [facility] Last Admin: 01/09/18 17:26 Dose: Not Given Patch Removal (Remove Old Patch) 1 each T-DERMAL Q3D [facility] Last Admin: 01/11/18 06:40 Dose: 1 each Povidone Iodine (Betadine 5% Antisepsis Kit) 1 applicatio EACH [facility] N[facility]SE PRACTITION[facility] Stop: 01/13/18 02:04 Senna/Docusate Sodium (Ramona-Colace) 1 tab PO BID [facility] Last Admin: 01/11/18 09:04 Dose: 1 tab Sennosides (Senokot) 17.2 mg PO Q12H PRN PRN Reason: Moderate Constipation Sucralfate (Carafate) 1 gm PO BID PRN PRN Reason: HEARTBURN Last Admin: 01/03/18 20:04 Dose: 1 gm Trazodone HCl (Desyrel) 50 mg PO [facility] Allergies Allergy/AdvReac Type Severity Reaction Status Date / Time gabapentin [From Neurontin] Allergy Hallucinati Verified 01/10/18 11:25 ons Results - Labs CBC & Chem 7: 01/11/18 03:51 01/11/18 03:50 Laboratory Results - last 24 hr 01/09/18 01/11/18 01/11/18 03:09 03:50 03:51 WBC 16.5 H RBC 3.38 L Hgb 10.4 L Hct 32.0 L MCV 94.6 MCH 30.7 MCHC 32.4 RDW 14.2 Plt Count 469 H MPV 6.8 L Prelim Diff (Auto) Slide review pending Neut % (Auto) 82.1 H Lymph % (Auto) 8.8 L [place] % (Auto) 8.2 H Eos % (Auto) 0.5 Baso % (Auto) 0.4 Neut # (Auto) 13.5 H Lymph # (Auto) 1.4 [place] # (Auto) 1.3 H Eos # (Auto) 0.1 Baso # (Auto) 0.1 WBC Differential . Diff Scan Auto diff confirmed Differential Comment . Platelet Estimate High H Platelet Morphology Normal Sodium 139 Potassium 4.6 Chloride 100 Carbon Dioxide 31.9 Anion Gap 7 BUN 17 Creatinine 0.97 Estimated GFR 87 L Random Glucose 107 H Calcium 8.9 Gabapentin 1.3 L - Imaging Impressions Ankle X-Ray 01/10/18 00:00 CONCLUSION: Internal and external fixation hardware in place. Foot X-Ray 01/10/18 00:00 CONCLUSION: Gross anatomical alignment. Foot X-Ray 01/10/18 00:00 CONCLUSION: Internal and external fixation hardware in place. Assessment and Plan - Assessment (1) Displaced fracture of navicular [scaphoid] of left foot, subsequent encounter for fracture with delayed healing Code(s): S92.252G - Displaced fracture of navicular [scaphoid] of left foot, subsequent encounter for fracture with delayed healing Status: Acute (2) Displaced fracture of left talus Code(s): S92.102A - Unspecified fracture of left talus, initial encounter for closed fracture Status: Acute - Plan Keep bandage clean, dry, intact. May change bandage tomorrow. Patient states his pain is under much better control now and would like to defer ankle block to later if needed. He states his pain only stays under control when medication is given as per the schedule.
[2018-01-11] MEDS: Melatonin 5 MG Tablet PO SCH (20:49)
[2018-01-11] MEDS: traZODone 50 MG Tablet PO SCH (20:49)
[2018-01-12] MEDS: oxyCODONE/Acetaminophen 10/325 Tablet PO PRN ×5 (02:22→22:59)
[2018-01-12] MEDS: Morphine Inj 4 MG/ML Vial IV.PUSH PRN (03:39)
[2018-01-12] MEDS: Methocarbamol 500 MG Tablet PO SCH ×3 (05:51→21:53)
[2018-01-12] MEDS: Ketorolac Inj 30 MG/ML (IVP) Vial IV.PUSH SCH ×4 (05:51→23:02)
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
[2018-01-12] MEDS: Metoprolol Tartrate 25 MG Tablet PO SCH ×2 (09:41→20:32)
[2018-01-12] MEDS: Famotidine 20 MG Tablet PO SCH ×2 (09:41→20:32)
[2018-01-12] MEDS: Senna/Docusate Sodium 8.6/50 MG Tablet PO SCH ×2 (09:41→20:32)
[2018-01-12] MEDS: Enoxaparin Inj 30 MG/0.3 ML Syringe SQ SCH ×2 (09:42→20:32)
--- NOTE | 2018-01-12 13:41 | P.PNPOD ---
Physical Exam Vital signs: Vital Signs 01/11/18 16:00 01/11/18 20:00 01/11/18 20:52 Temperature 97.9 F 98.4 F Pulse Rate 92 H 94 H Respiratory Rate 19 17 18 Blood Pressure 106/56 L 115/54 L Pulse Oximetry 93 L 94 L 01/11/18 20:56 01/11/18 22:50 01/12/18 00:00 Temperature 98.5 F Pulse Rate 93 H Respiratory Rate 18 18 18 Blood Pressure 111/58 L Pulse Oximetry 96 01/12/18 04:00 01/12/18 06:20 01/12/18 08:00 Temperature 98.4 F 97.9 F Pulse Rate 89 91 H Respiratory Rate 17 18 18 Blood Pressure 92/51 L 121/57 L Pulse Oximetry 93 L 94 L 01/12/18 12:00 Temperature 98.2 F Pulse Rate 94 H Respiratory Rate 16 Blood Pressure 109/55 L Pulse Oximetry 94 L Intake & Output 01/11/18 01/12/18 01/12/18 18:59 06:59 18:59 Weight 89.9 kg Other: # Voids 4 2 Date of Last Bowel Movement 01/09/18 01/09/18 # Bowel Movements 0 Narrative: Incision sites dry. Pin sites dry with no s/o infection. Neurovascularly intact L lower extremity Medications and Allergies Active Medications: Active Medications Acetaminophen (Tylenol Liq) 650 mg PO Q6H PRN PRN Reason: temp > 100.5 Last Admin: 01/01/18 09:05 Dose: 650 mg Al Hydroxide/Mg Hydroxide (Milk Of Magnesia Liq) 30 ml PO Q12H [facility] Last Admin: 01/12/18 09:41 Dose: Not Given Albuterol (Duoneb Neb (Prn)) 1 ampul NEB Q2HR NEB PRN PRN Reason: SHORTNESS OF BREATH/WHEEZING Bisacodyl (Dulcolax Supp) 10 mg RECTAL DAILY PRN PRN Reason: SEVERE CONSITIPATION Cephalexin Monohydrate (Keflex) 500 mg PO Q6HR [facility] Last Admin: 01/12/18 12:02 Dose: 500 mg Clopidogrel Bisulfate (Plavix) 75 mg PO DAILY [facility] Last Admin: 01/04/18 09:44 Dose: 75 mg Diphenhydramine HCl (Benadryl) 25 mg PO Q6H PRN PRN Reason: ITCHING Last Admin: 01/10/18 19:57 Dose: 25 mg Enoxaparin Sodium (Lovenox Inj) 30 mg SQ Q12HR [facility] Last Admin: 01/12/18 09:42 Dose: 30 mg Famotidine (Pepcid) 20 mg PO BID [facility] Last Admin: 01/12/18 09:41 Dose: 20 mg Fentanyl (Duragesic 50 Mcg Patch.72hr) 1 patch T-DERMAL Q3D [facility] Last Admin: 01/11/18 06:39 Dose: 1 patch Lactated Ringer's (Lr 1000 Ml Inj) 1,000 mls @ 30 mls/hr IV.SIG .Q24H [facility] Stop: 01/13/18 02:04 Last Admin: 01/12/18 03:25 Dose: Not Given Sodium Chloride (Ns Inj) 500 mls @ 30 mls/hr IV.SIG .Q10H [facility] Stop: 01/13/18 02:04 Ketorolac Tromethamine (Toradol Inj) 15 mg IV.PUSH Q6H [facility] Stop: 01/16/18 10:59 Last Admin: 01/12/18 12:02 Dose: 15 mg Lactulose (Lactulose Liq) 30 ml PO DAILY PRN PRN Reason: SEVERE CONSITIPATION Melatonin (Melatonin) 5 mg PO HS [facility] Last Admin: 01/11/18 20:49 Dose: 5 mg Methocarbamol (Robaxin) 500 mg PO Q8HR [facility] Last Admin: 01/12/18 05:51 Dose: 500 mg Metoprolol Tartrate (Lopressor) 25 mg PO BID [facility] Last Admin: 01/12/18 09:41 Dose: 25 mg Morphine Sulfate (Morphine Inj) 4 mg IV.PUSH Q3H PRN PRN Reason: BREAKTHROUGH PAIN Last Admin: 01/12/18 03:39 Dose: 4 mg Naloxone HCl (Narcan Inj) 0.4 mg IV.PUSH UNSCH PRN PRN Reason: SEE LABEL COMMENTS Ondansetron HCl (Zofran Inj) 4 mg IV.PUSH Q6H PRN PRN Reason: NAUSEA OR VOMITING Oxycodone/Acetaminophen (Percocet 5/325 Mg) 1 tab PO Q4H PRN PRN Reason: PAIN 3-5 Last Admin: 01/05/18 01:41 Dose: 1 tab Oxycodone/Acetaminophen (Percocet 10/325 Mg) 1 tab PO Q4H PRN PRN Reason: PAIN SCALE 6 TO 10 Last Admin: 01/12/18 09:45 Dose: 1 tab Patch Removal (Remove Old Patch) 1 each T-DERMAL Q3D [facility] Last Admin: 01/09/18 17:26 Dose: Not Given Patch Removal (Remove Old Patch) 1 each T-DERMAL Q3D [facility] Last Admin: 01/11/18 06:40 Dose: 1 each Povidone Iodine (Betadine 5% Antisepsis Kit) 1 applicatio EACH NARE DOLLYMAN [facility] Stop: 01/13/18 02:04 Senna/Docusate Sodium (Ramona-Colace) 1 tab PO BID [facility] Last Admin: 01/12/18 09:41 Dose: 1 tab Sennosides (Senokot) 17.2 mg PO Q12H PRN PRN Reason: Moderate Constipation Sucralfate (Carafate) 1 gm PO BID PRN PRN Reason: HEARTBURN Last Admin: 01/03/18 20:04 Dose: 1 gm Trazodone HCl (Desyrel) 50 mg PO HS [facility] Last Admin: 01/11/18 20:49 Dose: 50 mg Allergies Allergy/AdvReac Type Severity Reaction Status Date / Time gabapentin [From Neurontin] Allergy Hallucinati Verified 01/10/18 11:25 ons Results - Labs CBC & Chem 7: 01/11/18 03:51 01/11/18 03:50 Assessment and Plan - Assessment (1) Displaced fracture of navicular [scaphoid] of left foot, subsequent encounter for fracture with delayed healing Code(s): S92.252G - Displaced fracture of navicular [scaphoid] of left foot, subsequent encounter for fracture with delayed healing Status: Acute (2) Displaced fracture of left talus Code(s): S92.102A - Unspecified fracture of left talus, initial encounter for closed fracture Status: Acute - Plan Keep bandage clean, dry, intact. Dressing changed today. He will need dressing changes as follows when d/c to rehab: Twice weekly betadine to pin sites and incision sites, xeroform to pin sites/ incision sites, 4x4, cast padding, ladonna left lower extremity. Please offload heel using 2 pillows under calf to float at all times when at rest to reduce pressure. Ok with dc to rehab anytime.
[2018-01-12] MEDS: traZODone 50 MG Tablet PO SCH (20:32)
[2018-01-12] MEDS: Melatonin 5 MG Tablet PO SCH (20:32)
[2018-01-13] MEDS: Morphine Inj 4 MG/ML Vial IV.PUSH PRN (00:04)
[2018-01-13] MEDS: Ketorolac Inj 30 MG/ML (IVP) Vial IV.PUSH SCH ×4 (05:26→22:21)
[2018-01-13] MEDS: oxyCODONE/Acetaminophen 10/325 Tablet PO PRN ×4 (05:26→19:05)
[2018-01-13] MEDS: Methocarbamol 500 MG Tablet PO SCH ×3 (05:27→22:22)
[2018-01-13] MEDS: Enoxaparin Inj 30 MG/0.3 ML Syringe SQ SCH ×2 (10:38→22:20)
[2018-01-13] MEDS: Famotidine 20 MG Tablet PO SCH ×2 (10:38→22:22)
[2018-01-13] MEDS: Senna/Docusate Sodium 8.6/50 MG Tablet PO SCH ×2 (10:39→22:23)
[2018-01-13] MEDS: Metoprolol Tartrate 25 MG Tablet PO SCH ×2 (10:39→22:22)
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
[2018-01-13] MEDS: Melatonin 5 MG Tablet PO SCH (22:22)
[2018-01-14] MEDS: traZODone 50 MG Tablet PO SCH ×2 (00:19→22:09)
[2018-01-14] MEDS: oxyCODONE/Acetaminophen 10/325 Tablet PO PRN ×5 (00:19→22:23)
[2018-01-14] MEDS: Ketorolac Inj 30 MG/ML (IVP) Vial IV.PUSH SCH ×4 (04:49→22:09)
[2018-01-14] MEDS: Methocarbamol 500 MG Tablet PO SCH ×3 (06:39→22:38)
[2018-01-14] MEDS: Enoxaparin Inj 30 MG/0.3 ML Syringe SQ SCH ×2 (09:38→22:08)
[2018-01-14] MEDS: Senna/Docusate Sodium 8.6/50 MG Tablet PO SCH ×2 (09:39→22:09)
[2018-01-14] MEDS: Metoprolol Tartrate 25 MG Tablet PO SCH ×2 (09:39→22:09)
[2018-01-14] MEDS: Famotidine 20 MG Tablet PO SCH ×2 (09:41→22:09)
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
[2018-01-14] MEDS: Melatonin 5 MG Tablet PO SCH (22:09)
--- NOTE | 2018-01-14 22:42 | P.PNPOD ---
Subjective Interval history: Patient seen bedside. Denies calf pain. Denies N,V,F,Ch. Is resting comfortably. Is anticipating being discharged to [facility]. Physical Exam Vital signs: Vital Signs 01/14/18 04:44 01/14/18 08:00 01/14/18 12:00 Temperature 98.9 F 98.4 F 99.3 F Pulse Rate 89 89 93 H Respiratory Rate 18 16 16 Blood Pressure 142/60 H 127/63 116/59 L Pulse Oximetry 98 97 97 01/14/18 19:56 Temperature 98.3 F Pulse Rate 95 H Respiratory Rate 18 Blood Pressure 112/57 L Pulse Oximetry 95 Intake & Output 01/14/18 01/14/18 01/15/18 06:59 18:59 06:59 Intake Total 600 / 600 Output Total 200 / 200 900 / 900 Balance -200 / -200 -300 / -300 Weight 82.1 kg Intake: Oral 600 / 600 Output: Urine 200 / 200 900 / 900 Other: # Voids 1 Date of Last Bowel Movement 01/13/18 01/14/18 # Bowel Movements 1 Narrative: Neurovascular intact to left LE. Incisions well coapted with skin intact. Pin sites clean, dry and intact. No clinical signs of infection. No pain on calf squeeze to the left LE. Medications and Allergies Active Medications: Active Medications Acetaminophen (Tylenol Liq) 650 mg PO Q6H PRN PRN Reason: temp > 100.5 Last Admin: 01/01/18 09:05 Dose: 650 mg Al Hydroxide/Mg Hydroxide (Milk Of Magnesia Liq) 30 ml PO Q12H [facility] Last Admin: 01/14/18 09:40 Dose: Not Given Albuterol (Duoneb Neb (Prn)) 1 ampul NEB Q2HR NEB PRN PRN Reason: SHORTNESS OF BREATH/WHEEZING Bisacodyl (Dulcolax Supp) 10 mg RECTAL DAILY PRN PRN Reason: SEVERE CONSITIPATION Cephalexin Monohydrate (Keflex) 500 mg PO Q6HR [facility] Last Admin: 01/14/18 19:44 Dose: Not Given Clopidogrel Bisulfate (Plavix) 75 mg PO DAILY [facility] Last Admin: 01/14/18 09:39 Dose: 75 mg Diphenhydramine HCl (Benadryl) 25 mg PO Q6H PRN PRN Reason: ITCHING Last Admin: 01/10/18 19:57 Dose: 25 mg Enoxaparin Sodium (Lovenox Inj) 30 mg SQ Q12HR [facility] Last Admin: 01/14/18 22:08 Dose: 30 mg Famotidine (Pepcid) 20 mg PO BID [facility] Last Admin: 01/14/18 22:09 Dose: 20 mg Fentanyl (Duragesic 50 Mcg Patch.72hr) 1 patch T-DERMAL Q3D [facility] Last Admin: 01/14/18 06:39 Dose: 1 patch Ketorolac Tromethamine (Toradol Inj) 15 mg IV.PUSH Q6H [facility] Stop: 01/16/18 10:59 Last Admin: 01/14/18 22:09 Dose: 15 mg Lactulose (Lactulose Liq) 30 ml PO DAILY [facility] Last Admin: 01/14/18 09:40 Dose: Not Given Melatonin (Melatonin) 5 mg PO HS [facility] Last Admin: 01/14/18 22:09 Dose: 5 mg Methocarbamol (Robaxin) 500 mg PO Q8HR [facility] Last Admin: 01/14/18 22:38 Dose: Not Given Metoprolol Tartrate (Lopressor) 25 mg PO BID [facility] Last Admin: 01/14/18 22:09 Dose: 25 mg Morphine Sulfate (Morphine Inj) 4 mg IV.PUSH Q3H PRN PRN Reason: BREAKTHROUGH PAIN Last Admin: 01/13/18 00:04 Dose: 4 mg Naloxone HCl (Narcan Inj) 0.4 mg IV.PUSH UNSCH PRN PRN Reason: SEE LABEL COMMENTS Ondansetron HCl (Zofran Inj) 4 mg IV.PUSH Q6H PRN PRN Reason: NAUSEA OR VOMITING Oxycodone/Acetaminophen (Percocet 5/325 Mg) 1 tab PO Q4H PRN PRN Reason: PAIN 3-5 Last Admin: 01/05/18 01:41 Dose: 1 tab Oxycodone/Acetaminophen (Percocet 10/325 Mg) 1 tab PO Q4H PRN PRN Reason: PAIN SCALE 6 TO 10 Last Admin: 01/14/18 22:23 Dose: 1 tab Patch Removal (Remove Old Patch) 1 each T-DERMAL Q3D [facility] Last Admin: 01/12/18 10:00 Dose: 1 each Patch Removal (Remove Old Patch) 1 each T-DERMAL Q3D [facility] Last Admin: 01/14/18 06:40 Dose: 1 each Senna/Docusate Sodium (Ramona-Colace) 1 tab PO BID [facility] Last Admin: 01/14/18 22:09 Dose: 1 tab Sennosides (Senokot) 17.2 mg PO Q12H PRN PRN Reason: Moderate Constipation Sucralfate (Carafate) 1 gm PO BID PRN PRN Reason: HEARTBURN Last Admin: 01/03/18 20:04 Dose: 1 gm Trazodone HCl (Desyrel) 50 mg PO HS MADAL[facility] Last Admin: 01/14/18 22:09 Dose: 50 mg Allergies Allergy/AdvReac Type Severity Reaction Status Date / Time gabapentin [From Neurontin] Allergy Hallucinati Verified 01/10/18 11:25 ons Results - Labs CBC & Chem 7: 01/11/18 03:51 01/11/18 03:50 Assessment and Plan - Assessment (1) Displaced fracture of left talus Code(s): S92.102A - Unspecified fracture of left talus, initial encounter for closed fracture Status: Acute - Plan 37-year-old male status post open reduction internal fixation, talus, cuboid, navicular, intermediate, lateral, middle cuneiform with application of external fixator uniplane type performed by Dr. Lamar s/p ORIF talus, navicular and modification of Ex fix under anesthesia Keep bandage clean, dry, intact. Dressing changed today. Per Dr. Zapata patient will need dressing changes as follows when d/c to rehab : Twice weekly betadine to pin sites and incision sites, xeroform to pin sites/ incision sites, 4x4, cast padding, ladonna left lower extremity. Please offload heel using 2 pillows under calf to float at all times when at rest to reduce pressure. Ok with dc to rehab anytime
[2018-01-15] MEDS: Ketorolac Inj 30 MG/ML (IVP) Vial IV.PUSH SCH ×2 (06:15→11:59)
[2018-01-15] MEDS: Methocarbamol 500 MG Tablet PO SCH ×2 (08:49→14:57)
[2018-01-15] MEDS: oxyCODONE/Acetaminophen 10/325 Tablet PO PRN (09:10)
[2018-01-15] MEDS: Metoprolol Tartrate 25 MG Tablet PO SCH (09:10)
[2018-01-15] MEDS: Senna/Docusate Sodium 8.6/50 MG Tablet PO SCH (09:11)
[2018-01-15] MEDS: Famotidine 20 MG Tablet PO SCH (09:11)
[2018-01-15] MEDS: Enoxaparin Inj 30 MG/0.3 ML Syringe SQ SCH (09:11)
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
== END 2018-01-15 14:53 ==
LOC: NEPI 21:55 → NEDA 22:38 → EDBD 22:38 → N03 12-29 01:39 → N06 01-04 01:50
PROVIDERS: ADMIT Surgery; ATTEND Surgery